=== PATIENT | female | born 1990 ===

== ENCOUNTER 2017-02-22 15:44 | Emergency (ER) | payer MEDICARE ==
[2017-02-22 15:55] VITALS: BMI 32.5
[2017-02-22 15:58] VITALS: TEMP 98.7; O2SAT 100
--- NOTE | 2017-02-22 16:19 | ED PDOC ---
Arrival/HPI - General Chief Complaint: Abdominal Pain Time Seen by Provider: 02/22/17 15:47 Historian: Patient - History of Present Illness Narrative History of Present Illness (Text): 02/22/17 16:14 26yo female present complaining of sharp suprapubic abdominal pain since this morning. states pain became increasingly worse as the day goes on. She notes clear vaginal discharge, but states is her usual discharge. She report that she is currently 10weeks . States her LMP was December 20/2017. Admits to nausea and vomiting, but states she has been having n/v since she became . She denies vaginal bleeding, fever, chills, diarrhea, constipation, dysuria, back pain, dizziness, any other complaint. Her first appointment with her OB is next week Saturday. Past Medical History - Provider Review Nursing Documentation Reviewed: Yes - Infectious Disease Hx of Infectious Diseases: None - Cardiac Hx Cardiac Disorders: No - Pulmonary Hx Respiratory Disorders: Yes Hx Asthma: Yes - Neurological Hx Neurological Disorder: No - HEENT Hx HEENT Disorder: No - Renal Hx Renal Disorder: No - Endocrine/Metabolic Hx Endocrine Disorders: No - Hematological/Oncological Hx Blood Disorders: No - Integumentary Hx Dermatological Disorder: No - Musculoskeletal/Rheumatological Hx Musculoskeletal Disorders: No - Gastrointestinal Hx Gastrointestinal Disorders: No - Genitourinary/Gynecological Hx Genitourinary Disorders: No - Psychiatric Hx Psychophysiologic Disorder: Yes Hx Depression: Yes Hx Substance Use: Yes - Anesthesia Hx Anesthesia: Yes Hx Anesthesia Reactions: No Hx Malignant Hyperthermia: No Family/Social History - Physician Review Nursing Documentation Reviewed: Yes Family/Social History: Unknown Family HX Smoking Status: Light Smoker < 10 Cigarettes Daily Hx Alcohol Use: No Hx Substance Use: Yes Substance used: Heroine; quit 4 years ago Allergies/Home Meds Allergies/Adverse Reactions: Allergies No Known Allergies Allergy (Verified 02/22/17 15:53) Home Medications: Home Meds Medication Instructions Recorded Confirmed No Known Home Med 02/22/17 02/22/17 Review of Systems - Physician Review All systems were reviewed & negative as marked: Yes - Review of Systems Constitutional: Normal Eyes: Normal ENT: Normal Respiratory: Normal Cardiovascular: Normal Gastrointestinal: Abdominal Pain, Nausea, Vomiting. absent: Constipation, Diarrhea, Hematochezia, Hematemesis Genitourinary Female: Normal Musculoskeletal: Normal Skin: Normal Neurological: Normal Endocrine: Normal Hemo/Lymphatic: Normal Psychiatric: Normal Physical Exam Vital Signs Reviewed: Yes Vital Signs Temp Pulse Resp BP Pulse Ox 02/22/17 18:42 87 17 110/70 100 02/22/17 16:27 89 18 103/68 100 02/22/17 15:57 98.7 F 96 H 17 101/72 100 Temperature: Afebrile Blood Pressure: Normal Pulse: Regular Respiratory Rate: Normal Appearance: Positive for: Well-Appearing, Non-Toxic, Comfortable Pain Distress: None Mental Status: Positive for: Alert and Oriented X 3 - Systems Exam Head: Present: Atraumatic, Normocephalic Pupils: Present: PERRL Extroacular Muscles: Present: EOMI Conjunctiva: Present: Normal Mouth: Present: Moist Mucous Membranes Neck: Present: Normal Range of Motion Respiratory/Chest: Present: Clear to Auscultation, Good Air Exchange. No: Respiratory Distress, Accessory Muscle Use Cardiovascular: Present: Regular Rate and Rhythm, Normal S1, S2. No: Murmurs Abdomen: Present: Tenderness (Suprapubic tenderness), Normal Bowel Sounds, Other (Soft). No: Distention, Peritoneal Signs, Rebound, Guarding, McBurney's Point Tender, Rovsing's Sign Present Back: Present: Normal Inspection. No: CVA Tenderness Upper Extremity: Present: Normal Inspection. No: Cyanosis, Edema Lower Extremity: Present: Normal Inspection. No: Edema Neurological: Present: GCS=15, CN II-XII Intact, Speech Normal Skin: Present: Warm, Dry, Normal Color. No: Rashes Psychiatric: Present: Alert, Oriented x 3, Normal Insight, Normal Concentration Medical Decision Making ED Course and Treatment: 02/23/17 00:40 PT presented for stated history. She was comfortable in ED. Hydrated and Tylenol given for pain. Lab was unremarkable. Transvaginal US Impression: Live single intrauterine with estimated gestational age 8 weeks 3 days. heart rate 164 bpm. Probable 1.1 x 2.0 cm subchorionic hemorrhage. Advise an anomaly screen at 16-18 weeks gestational age Pt denied vaginal bleeding in ED. Result was DW the pt. she was advised to f/u with her [employer]. TRT ED for any new or worsening symptoms - Lab Interpretations Lab Results: 02/22/17 16:00 02/22/17 16:00 Lab Results 02/22/17 16:00: Beta HCG, Quant [id number] H 02/22/17 16:00: Sodium 136, Potassium 3.5 L, Chloride 107, Carbon Dioxide 19 L, Anion Gap 14, BUN 10, Creatinine 0.5, Est GFR ( Amer) > 60, Est GFR (Non- Af Amer) > 60, Random Glucose 93, Calcium 8.9, Total Bilirubin 0.3, AST 17, ALT 19, Alkaline Phosphatase 36 L, Total Protein 6.6, Albumin 3.7, Globulin 2.9, Albumin/Globulin Ratio 1.3 02/22/17 16:00: Urine Color Yellow, Urine Appearance Cloudy, Urine pH 6.0, Ur Specific [place] >= 1.030, Urine Protein Negative, Urine Glucose (UA) Negative, Urine Ketones Trace H, Urine Blood Trace-lysed H, Urine Nitrate Negative, Urine Bilirubin Negative, Urine Urobilinogen 0.2, Ur Leukocyte Esterase Trace H, Urine RBC 0 - 2, Urine WBC 0 - 2, Ur Epithelial Cells Many, Calcium Oxalate Crystal Small, Urine Bacteria Mod, Urine HCG, Qual Positive 02/22/17 16:00: PT 10.1, INR 0.94, APTT 25.6 02/22/17 16:00: WBC 9.6 D, RBC 4.38, Hgb 13.1, Hct 36.8, MCV 84.0, MCH 29.9, MCHC 35.6, RDW 12.4, Plt Count 216, MPV 10.1, Gran % 65.7, Lymph % (Auto) 26.4, [place] % (Auto) 3.9, Eos % (Auto) 3.8, Baso % (Auto) 0.2, Gran # 6.28, Lymph # 2.5 , [place] # 0.4, Eos # 0.4, Baso # 0.02 - RAD Interpretation Radiology Orders: 02/22/17 16:09 OB TRANSVAGINAL [US] Stat - Medication Orders Current Medication Orders: Discontinued Medications Acetaminophen (Tylenol 325mg Tab) 650 mg PO STAT STA Stop: 02/22/17 16:24 Last Admin: 02/22/17 16:33 Dose: 650 mg Sodium Chloride (Sodium Chloride 0.9%) 1,000 mls @ 999 mls/hr IV .Q1H1M STA Stop: 02/22/17 17:22 Last Admin: 02/22/17 16:25 Dose: 999 mls/hr Disposition/Present on Arrival - Present on Arrival Any Indicators Present on Arrival: No History of DVT/PE: No History of Uncontrolled Diabetes: No Urinary Catheter: No History of Decub. Ulcer: No History Surgical Site Infection Following: None - Disposition Have Diagnosis and Disposition been Completed?: Yes Diagnosis: Abdominal pain, Disposition: HOME/ ROUTINE Disposition Time: 18:20 Isolation: Special Contact Patient Plan: Discharge Condition: STABLE Discharge Instructions (ExitCare): (ED), Abdominal Pain (ED) Additional Instructions: Follow up with your OB Return to ED for any new or worsening symptoms Referrals: Audra Edwards DO [Primary Care Provider] - Follow up with primary Lennox Caceres MD [Medical Doctor] - Follow up with primary
[2017-02-22] MEDS ORDERED: Sodium Chloride 0.9% 1,000 ML IV STA (16:22)
[2017-02-22 16:25] LABS: ADD MANUAL DIFF? NO
[2017-02-22 16:34] LABS: URINE BILIRUBIN NEGATIVE (NEGATIVE); URINE BLOOD TRACE-LYSED (NEGATIVE); URINE GLUCOSE (UA) NEGATIVE (NEGATIVE); URINE KETONE TRACE mg/dL (NEGATIVE); URINE LEUKOCYTE ESTERASE TRACE Leu/uL (NEGATIVE); URINE PROTEIN NEGATIVE mg/dL (<30 mg/dL); URINE UROBILINOGEN 0.2 E.U./dL (<1 E.U./dL)
[2017-02-22 16:40] LABS: ALB/GLOB RATIO 1.3 (1.1-1.8); ALKALINE PHOSPHATASE 36 U/L (38-133); ALT/SGPT 19 U/L (7-56); AST/SGOT 17 U/L (15-39); BASO # 0.02 K/mm3 (0.0-2.0); BASO % 0.2 % (0.0-3.0); BILIRUBIN,TOTAL 0.3 mg/dL (0.2-1.3); BLOOD UREA NITROGEN 10 mg/dL (7-21); CALCIUM 8.9 mg/dL (8.4-10.5); CARBON DIOXIDE 19 mmol/L (21-33); CHLORIDE 107 mmol/L (98-107); EOS # 0.4 (0.0-0.7); EOS % 3.8 % (1.5-5.0); GFR AFRICAN-AMERICAN > 60; GLUCOSE,RANDOM 93 mg/dL (70-110); GRAN # 6.28 (1.4-6.5); GRAN % 65.7 % (50.0-68.0); HEMATOCRIT 36.8 % (36.0-48.0); LYMPH # 2.5 (1.2-3.4); LYMPH % 26.4 % (22.0-35.0); MEAN CORPUSCULAR HEMOGLOBIN 29.9 pg (25.0-35.0); MEAN CORPUSCULAR HGB CONC 35.6 g/dl (31.0-37.0); MEAN PLATELET VOLUME 10.1 fl (7.0-11.0); MONO # 0.4 (0.1-0.6); MONO % 3.9 % (1.0-6.0); PLATELET COUNT 216 10^3/uL (120.0-450.0); RED CELL DISTRIBUTION WIDTH 12.4 % (11.5-14.5); SODIUM 136 mmol/L (132-148); TOTAL PROTEIN 6.6 g/dL (5.8-8.3); WHITE BLOOD COUNT 9.6 10^3/ul (4.5-11.0)
[2017-02-22 16:42] LABS: POTASSIUM 3.5 mmol/L (3.6-5.0); URINE APPEARANCE CLOUDY (CLEAR); URINE COLOR YELLOW (YELLOW)
[2017-02-22 17:01] LABS: INR 0.94 (0.93-1.08); PARTIAL THROMBOPLASTIN TIME 25.6 Seconds (23.7-30.8)
[2017-02-22 17:14] LABS: URINE BACTERIA MOD (NEG); URINE CALCIUM OXALATE CRYSTALS SMALL /hpf; URINE EPITHELIAL CELLS MANY /hpf (0-5); URINE RBC 0 - 2 /hpf (0-2); URINE WBC 0 - 2 /hpf (0-6)
--- NOTE | 2017-02-22 18:05 | US ---
Indication: /abdominal pain Comparison: None available Technique: Transvaginal pelvic ultrasound. Findings: The uterus measures approximately 10.4 x 5.9 x 9.0 cm. Anteverted. There is a single intrauterine fetus present. The gestational sac measures 3.2 cm and is compatible with a gestational age of 8 weeks 2 days. The crown-rump length measures 2.0 cm and is compatible with a gestational age of 8 weeks 4 days. Probable 1.1 x 2.0 cm subchorionic hemorrhage. There is heart motion which measured 164 BPM. The right ovary measures 3.4 x 2.1 x 3.4 cm and contains 2.7 cm cyst. The left ovary measures 3.7 x 2.3 x 3.1 cm and contains 1.1 cm cyst. Blood flow was demonstrated to both ovaries. Impression: Live single intrauterine with estimated gestational age 8 weeks 3 days. heart rate 164 bpm. Probable 1.1 x 2.0 cm subchorionic hemorrhage. Advise an anomaly screen at 16-18 weeks gestational age
[2017-02-22 18:43] VITALS: BP 110/70; PULSE 87; RESP 17
== END 2017-02-22 18:43 | disposition home or self-care (01) ==
LOC: ED 15:44
DX: O26.891 Other specified pregnancy related conditions, first trimester (principal); R10.9 Unspecified abdominal pain; Z3A.10 10 weeks gestation of pregnancy
CPT/HCPCS: 76817; 80053; 81001; 84702; 84703; 85025; 85610; 85730; 96360; 99285; J7040

== ENCOUNTER 2017-03-17 06:45 | Emergency (ER) | payer MEDICAID, MEDICARE ==
[2017-03-17] MEDS ORDERED: Sodium Chloride 0.9% 1,000 ML IV STA (07:42)
[2017-03-17 07:47] VITALS: TEMP 99.1; BMI 34.3
[2017-03-17 08:28] LABS: BASO # 0.03 K/mm3 (0.0-2.0); BASO % 0.4 % (0.0-3.0); EOS # 0.6 (0.0-0.7); EOS % 8.4 % (1.5-5.0); GRAN # 4.38 (1.4-6.5); GRAN % 61.2 % (50.0-68.0); HEMOGLOBIN 10.2 gm/dL (12.0-16.0); LYMPH # 1.9 (1.2-3.4); LYMPH % 25.8 % (22.0-35.0); MEAN CELL VOLUME 84.6 fL (80.0-105.0); MEAN CORPUSCULAR HEMOGLOBIN 29.7 pg (25.0-35.0); MEAN CORPUSCULAR HGB CONC 35.1 g/dl (31.0-37.0); MEAN PLATELET VOLUME 10.6 fl (7.0-11.0); MONO # 0.3 (0.1-0.6); MONO % 4.2 % (1.0-6.0); PLATELET COUNT 226 10^3/uL (120.0-450.0); RBC 3.44 10^6/uL (3.5-6.1); WHITE BLOOD COUNT 7.2 10^3/ul (4.5-11.0)
[2017-03-17 08:37] LABS: INR 0.95 (0.93-1.08); PARTIAL THROMBOPLASTIN TIME 24.7 Seconds (23.7-30.8); PROTHROMBIN TIME 10.3 Seconds (9.9-11.8)
[2017-03-17 11:11] LABS: ALB/GLOB RATIO 1.1 (1.1-1.8); ALBUMIN 3.1 g/dL (3.0-4.8); ALT/SGPT 20 U/L (7-56); AST/SGOT 17 U/L (15-39); BLOOD UREA NITROGEN 7 mg/dL (7-21); CALCIUM 8.5 mg/dL (8.4-10.5); GFR AFRICAN-AMERICAN > 60; GFR NON-AFRICAN AMERICAN > 60; LIPASE 23 U/L (23-300)
[2017-03-17 11:44] VITALS: RESP 18
[2017-03-17 11:45] VITALS: BP 113/59; PULSE 82; O2SAT 98
--- NOTE | 2017-03-17 12:05 | US ---
Pelvic ultrasound dated 03/17/2017. History: Status post 2 days ago with vaginal bleeding. Transabdominal/transvaginal sonographic evaluation of pelvis performed. The no prior study available for comparison. Findings: The uterus is mildly enlarged measuring 11.2 x 6.5 x 8.7 cm. No evidence of intrauterine gestation. Clear endometrial stripe is not identified however what probably represents heterogeneous prominent endometrium and debris possibly admixed with hemorrhagic components. None evidence of significant increased vascularity to suggest retained products however the possibility of developing retained products must be excluded with followup serial ultrasound. Possibility of an ectopic must also be excluded with followup serial serum beta HCG and serial ultrasound as well. Cervix is closed measuring approximately 3.8 cm. Right ovary measures 2.4 x 1.5 x 1.0 cm and exhibits arterial flow. Left ovary measures 1.7 x 1.5 x 1.5 cm. . The left ovary exhibits arterial flow. Impression: No evidence of intrauterine gestation. The possibility of an ectopic must be excluded with followup serial serum beta HCG and serial ultrasound. The there is markedly heterogeneous appearance of the endometrium which could be due to some combination of prominent endometrium as well as some hemorrhagic debris/clot. No evidence of increased vascularity to suggest retained products however developing retained products cannot be excluded. Follow-up ultrasound recommended to assess for yazdanism of normal endometrial thickness These findings were discussed with the Dr. Linn ibanez at approximately 11:15 a.m. with written down and read back verification.
--- NOTE | 2017-03-17 12:17 | ED PDOC ---
Arrival/HPI - General Chief Complaint: Female Genitourinary Time Seen by Provider: 03/17/17 07:34 Historian: Patient - History of Present Illness Narrative History of Present Illness (Text): 03/17/17 8:30 A 26 year old female presents to the emergency department complaining of vaginal bleeding for the past two days. Patient states she had an two days ago at the [facility] and notes vaginal bleeding since the procedure, slowly increased this morning. Reports nausea and vomiting but denies any dysuria, hematuria, foul smelling vaginal discharge, fever or any other complaints at this time. Time/Duration: Other (2 days) Symptom Onset: Sudden Symptom Course: Unchanged Activities at Onset: Rest Context: Home Past Medical History - Provider Review Nursing Documentation Reviewed: Yes - Infectious Disease Hx of Infectious Diseases: None - Cardiac Hx Cardiac Disorders: No - Pulmonary Hx Respiratory Disorders: Yes Hx Asthma: Yes - Neurological Hx Neurological Disorder: No - HEENT Hx HEENT Disorder: No - Renal Hx Renal Disorder: No - Endocrine/Metabolic Hx Endocrine Disorders: No - Hematological/Oncological Hx Blood Disorders: No - Integumentary Hx Dermatological Disorder: No - Musculoskeletal/Rheumatological Hx Musculoskeletal Disorders: No - Gastrointestinal Hx Gastrointestinal Disorders: No - Genitourinary/Gynecological Hx Genitourinary Disorders: No - Psychiatric Hx Psychophysiologic Disorder: Yes Hx Depression: Yes Hx Substance Use: Yes - Anesthesia Hx Anesthesia: Yes Hx Anesthesia Reactions: No Hx Malignant Hyperthermia: No Family/Social History - Physician Review Nursing Documentation Reviewed: Yes Family/Social History: No Known Family HX Smoking Status: Light Smoker < 10 Cigarettes Daily Hx Alcohol Use: No Hx Substance Use: Yes Substance used: Heroine; quit 4 years ago Allergies/Home Meds Allergies/Adverse Reactions: Allergies No Known Allergies Allergy (Verified 03/17/17 07:31) Home Medications: Home Meds Medication Instructions Recorded Confirmed No Known Home Med 02/22/17 03/17/17 Review of Systems - Physician Review All systems were reviewed & negative as marked: Yes - Review of Systems Constitutional: absent: Fevers Gastrointestinal: Nausea, Vomiting Genitourinary Female: Vaginal Bleeding. absent: Dysuria, Hematuria, Other ( foul smelling vaginal discharge) Physical Exam Vital Signs Reviewed: Yes Vital Signs Temp Pulse Resp BP Pulse Ox 03/17/17 11:44 82 18 113/59 L 98 03/17/17 09:00 72 18 120/77 99 03/17/17 07:27 99.1 F 87 16 104/66 99 Temperature: Afebrile Blood Pressure: Normal Pulse: Regular Respiratory Rate: Normal Appearance: Positive for: Well-Appearing, Non-Toxic, Comfortable Pain Distress: None Mental Status: Positive for: Alert and Oriented X 3 - Systems Exam Head: Present: Atraumatic, Normocephalic Pupils: Present: PERRL Extroacular Muscles: Present: EOMI Conjunctiva: Present: Normal Mouth: Present: Moist Mucous Membranes Neck: Present: Normal Range of Motion Respiratory/Chest: Present: Clear to Auscultation, Good Air Exchange. No: Respiratory Distress, Accessory Muscle Use Cardiovascular: Present: Regular Rate and Rhythm, Normal S1, S2. No: Murmurs Abdomen: Present: Normal Bowel Sounds. No: Tenderness, Distention, Peritoneal Signs Back: Present: Normal Inspection Upper Extremity: Present: Normal Inspection. No: Cyanosis, Edema Lower Extremity: Present: Normal Inspection. No: Edema Neurological: Present: GCS=15, CN II-XII Intact, Speech Normal Skin: Present: Warm, Dry, Normal Color. No: Rashes Psychiatric: Present: Alert, Oriented x 3, Normal Insight, Normal Concentration Medical Decision Making ED Course and Treatment: 03/17/17 8:30 Impression: A 26 year old female with vaginal bleeding. Plan: -- US transvaginal -- labs -- IV fluids, Toradol -- Reassess and disposition Prior Visits: Notes and results from previous visits were reviewed. Patient last reported to the emergency department on 02/22/17 for evaluation of suprapubic abdominal pain. Progress Notes: 03/17/17 11:20 Spoke to patient and advised her to follow up with OBGYN that did her procedure tomorrow morning at [facility]. 03/17/17 11:56 Transvaginal US Creator : Sammy Moseley MD Impression: No evidence of intrauterine gestation. The possibility of an ectopic must be excluded with followup serial serum beta HCG and serial ultrasound. The there is markedly heterogeneous appearance of the endometrium which could be due to some combination of prominent endometrium as well as some hemorrhagic debris/clot. No evidence of increased vascularity to suggest retained products however developing retained products cannot be excluded. Follow-up ultrasound recommended to assess for latter day of normal endometrial thickness These findings were discussed with the Dr. Osullivan at approximately 11:15 a.m. with written down and read back verification. - Lab Interpretations Lab Results: 03/17/17 08:10 03/17/17 10:35 Lab Results 03/17/17 10:35: Sodium 140, Potassium 4.0, Chloride 108 H, Carbon Dioxide 24, Anion Gap 12, BUN 7, Creatinine 0.5, Est GFR ( Amer) > 60, Est GFR (Non- Af Amer) > 60, Random Glucose 77, Calcium 8.5, Total Bilirubin 0.2, AST 17, ALT 20, Alkaline Phosphatase 30 L, Total Protein 6.0, Albumin 3.1, Globulin 2.9, Albumin/Globulin Ratio 1.1, Lipase 23 03/17/17 08:10: PT 10.3, INR 0.95, APTT 24.7 03/17/17 08:10: WBC 7.2 D, RBC 3.44 L, Hgb 10.2 L, Hct 29.1 L, MCV 84.6, MCH 29.7, MCHC 35.1, RDW 13.0, Plt Count 226, MPV 10.6, Gran % 61.2, Lymph % (Auto) 25.8, [place] % (Auto) 4.2, Eos % (Auto) 8.4 H, Baso % (Auto) 0.4, Gran # 4.38, Lymph # 1.9, [place] # 0.3, Eos # 0.6, Baso # 0.03 I have reviewed the lab results: Yes - RAD Interpretation Radiology Orders: 03/17/17 08:25 TRANSVAGINAL [US] Stat - Medication Orders Current Medication Orders: Discontinued Medications Sodium Chloride (Sodium Chloride 0.9%) 1,000 mls @ 1,000 mls/hr IV .Q1H STA Stop: 03/17/17 08:41 Last Admin: 03/17/17 08:16 Dose: 1,000 mls/hr Ketorolac Tromethamine (Toradol) 30 mg IVP STAT STA Stop: 03/17/17 08:27 Last Admin: 03/17/17 11:39 Dose: 30 mg Comments: patient refusing at first - Scribe Statement The provider has reviewed the documentation as recorded by the Marielena Brasher Provider Scribe Attestation: All medical record entries made by the Scribe were at my direction and personally dictated by me. I have reviewed the chart and agree that the record accurately reflects my personal performance of the history, physical exam, medical decision making, and the department course for this patient. I have also personally directed, reviewed, and agree with the discharge instructions and disposition. Disposition/Present on Arrival - Present on Arrival Any Indicators Present on Arrival: No History of DVT/PE: No History of Uncontrolled Diabetes: No Urinary Catheter: No History of Decub. Ulcer: No History Surgical Site Infection Following: None - Disposition Have Diagnosis and Disposition been Completed?: Yes Diagnosis: Vaginal bleeding Disposition: HOME/ ROUTINE Disposition Time: 11:30 Condition: GOOD Additional Instructions: Thank you for letting us take care of you today. You were treated for vaginal bleeding after an elective . The emergency medical care you received today was directed at your acute symptoms. If you were prescribed any medication , please fill it and take as directed. It may take several days for your symptoms to resolve. Return to the Emergency Department if your symptoms worsen , do not improve, or if you have any other problems. Please contact your doctor or call one of the physicians/clinics you have been referred to that are listed on the Patient Visit Information form that is included in your discharge packet. Bring any paperwork you were given at discharge with you along with any medications you are taking to your follow up visit. Our treatment cannot replace ongoing medical care by a primary care provider (PCP) outside of the emergency department. Thank you for allowing the [facility] team to be part of your care today. FOLLOW UP WITH YOUR [facility] AT [facility] TOMORROW MORNING FOR POSSIBLE REPEAT BLOOD WORK AND ULTRASOUND. If you develop a fever or have any other concerns, return to the emergency room. Referrals: Audra Edwards DO [Primary Care Provider] - Follow up with primary Forms: WORK NOTE
== END 2017-03-17 12:00 | disposition home or self-care (01) ==
LOC: ED 06:45
DX: N93.9 Abnormal uterine and vaginal bleeding, unspecified (principal)
CPT/HCPCS: 76830; 80053; 83690; 85025; 85610; 85730; 96361; 96374; 99284; J1885; J7040

== ENCOUNTER 2017-03-22 16:29 | Emergency (ER) | payer MEDICARE, MEDICAID ==
[2017-03-22 16:36] VITALS: BMI 33.0
[2017-03-22 16:38] VITALS: TEMP 99; O2SAT 100
--- NOTE | 2017-03-22 16:58 | ED PDOC ---
Arrival/HPI - General Chief Complaint: Finger,Hand,&Wrist Time Seen by Provider: 03/22/17 16:33 - History of Present Illness Narrative History of Present Illness (Text): 26 F with no PMH presents to ED with complaint of L fifth digit laceration. Patient was cuttting raw chicken at home around 4 pm when she accidentally cut her finger. Patient stated that it happen suddenly. She washed it off and used bandage to stop bleeding before coming straight to ED. Patient rates pain 3-4/ 10. Describes it as a constant and burning pain. Tetanus status unknown. Time/Duration: Prior to Arrival Symptom Onset: Sudden Symptom Course: Unchanged Severity Level: 4 Activities at Onset: Other (cooking) Context: Home Past Medical History - Provider Review Nursing Documentation Reviewed: Yes - Travel History Have you recently traveled outside [place] w/in the past 3 mons?: No - Infectious Disease Hx of Infectious Diseases: None - Cardiac Hx Cardiac Disorders: No - Pulmonary Hx Respiratory Disorders: Yes Hx Asthma: Yes - Neurological Hx Neurological Disorder: No - HEENT Hx HEENT Disorder: No - Renal Hx Renal Disorder: No - Endocrine/Metabolic Hx Endocrine Disorders: No - Hematological/Oncological Hx Blood Disorders: No - Integumentary Hx Dermatological Disorder: No - Musculoskeletal/Rheumatological Hx Musculoskeletal Disorders: No - Gastrointestinal Hx Gastrointestinal Disorders: No - Genitourinary/Gynecological Hx Genitourinary Disorders: No - Psychiatric Hx Psychophysiologic Disorder: Yes Hx Depression: Yes Hx Substance Use: Yes - Anesthesia Hx Anesthesia: Yes Hx Anesthesia Reactions: No Hx Malignant Hyperthermia: No Family/Social History - Physician Review Nursing Documentation Reviewed: Yes Family/Social History: Unknown Family HX Smoking Status: Light Smoker < 10 Cigarettes Daily Hx Alcohol Use: No Hx Substance Use: Yes Substance used: Heroine; quit 4 years ago Allergies/Home Meds Allergies/Adverse Reactions: Allergies No Known Allergies Allergy (Verified 03/22/17 16:36) Physical Exam Vital Signs Reviewed: Yes Vital Signs Temp Pulse Resp BP Pulse Ox 03/22/17 16:37 99.0 F 88 17 114/66 100 Temperature: Afebrile Blood Pressure: Normal Pulse: Regular Respiratory Rate: Normal Appearance: Positive for: Well-Appearing, Non-Toxic, Uncomfortable Pain Distress: Mild Mental Status: Positive for: Alert and Oriented X 3 - Systems Exam Head: Present: Atraumatic, Normocephalic Mouth: Present: Moist Mucous Membranes Respiratory/Chest: Present: Clear to Auscultation, Good Air Exchange Cardiovascular: Present: Regular Rate and Rhythm, Normal S1, S2, Peripheal Pulses Present Abdomen: Present: Normal Bowel Sounds. No: Tenderness, Distention, Rebound, Guarding Upper Extremity: Present: NORMAL PULSES, Neurovascularly Intact, Capillary Refill < 2s Lower Extremity: Present: NORMAL PULSES, Neurovascularly Intact, Capillary Refill < 2 s Neurological: Present: GCS=15, CN II-XII Intact, Speech Normal, Motor Func Grossly Intact Skin: Present: Warm, Dry, Laceration Lymphatic: No: Cervical Adenopathy, Axillary Adenopathy, Inguinal Adenopathy Psychiatric: Present: Alert (L fifth digit), Oriented x 3, Normal Insight, Normal Concentration Medical Decision Making ED Course and Treatment: Patient given TDAP since tetanus status unknown. Dermabond was used to close wound since it was an avulsion wound. Bactrim DS rx given for 7 days. - Medication Orders Current Medication Orders: Discontinued Medications Tetanus/Reduced Diphtheria/Acell Pertussis (Boostrix Vaccine Inj) 0.5 ml IM .ONCE ONE Stop: 03/22/17 17:12 Disposition/Present on Arrival - Present on Arrival Any Indicators Present on Arrival: No History of DVT/PE: No History of Uncontrolled Diabetes: No Urinary Catheter: No History of Decub. Ulcer: No History Surgical Site Infection Following: None - Disposition Have Diagnosis and Disposition been Completed?: Yes Diagnosis: Laceration of finger Disposition: HOME/ ROUTINE Disposition Time: 17:12 Patient Plan: Discharge Patient Problems: Current Active Problems Problem Status Onset Laceration of finger Acute Condition: STABLE Discharge Instructions (ExitCare): Laceration (ED) Additional Instructions: Thank you for letting us take care of you today. Your provider was Dr. Carranza. You were treated for laceration of finger. The emergency medical care you received today was directed at your acute symptoms. If you were prescribed any medication, please fill it and take as directed. It may take several days for your symptoms to resolve. Return to the Emergency Department if your symptoms worsen, do not improve, or if you have any other problems. Please contact your doctor or call one of the physicians/clinics you have been referred to that are listed on the Patient Visit Information form that is included in your discharge packet. Bring any paperwork you were given at discharge with you along with any medications you are taking to your follow up visit. Our treatment cannot replace ongoing medical care by a primary care provider (PCP) outside of the emergency department. Thank you for allowing the [email or web address] team to be part of your care today. If you had an X-Ray or CT scan: A Radiologist will review the ED reading if any change in treatment is needed we will contact you. If you had a blood, urine, or wound culture: It will take several days for the results, if any change in treatment is needed we will contact you. If you had an STI test: It will take 48 hours for the results. Please call after 1 week if you have not heard back. Take Bactrim DS as prescribed Follow up with PMD within 2-3 days Please return to ED if symptoms persist or condition worsens Prescriptions: Sulfamethoxazole/Trimethoprim [Bactrim DS 800 mg-160 mg] 1 tab PO BID #14 tab
[2017-03-22] MEDS ORDERED: TDAP Vaccine 0.5 mL Syr IM ONE (17:11)
[2017-03-22 18:07] VITALS: BP 116/68; PULSE 79; RESP 18
== END 2017-03-22 18:08 | disposition home or self-care (01) ==
LOC: ED 16:29
DX: S61.217A Laceration without foreign body of left little finger without damage to nail, initial encounter (principal); W45.8XXA Other foreign body or object entering through skin, initial encounter; Y92.009 Unspecified place in unspecified non-institutional (private) residence as the place of occurrence of the external cause; Z23 Encounter for immunization

== ENCOUNTER 2017-07-27 12:15 | Emergency (ER) | payer MEDICARE, MEDICAID ==
[2017-07-27 12:20] VITALS: BMI 32.4
[2017-07-27 12:32] VITALS: BP 134/67; PULSE 64; RESP 18; TEMP 98.6; O2SAT 98
--- NOTE | 2017-07-27 12:46 | ED PDOC ---
Arrival/HPI - General Chief Complaint: Chest Pain Time Seen by Provider: 07/27/17 12:27 Historian: Patient - History of Present Illness Narrative History of Present Illness (Text): 07/27/17 12:46 This 26 yo female with pmh asthma, and depression, presents to this ED c/o CP, b /l hands feel tingling, polydipsia x 2-3 days. Patient stated pain has been constant, and it worsen with movement. Pain is described as pressure and sharp. Denies sob, cortés, hemeoptysis, recent travel, leg swelling, BCP use, calf pain, recent travel, recent surgery, cortés, dizziness, or abnormal gait. PERC negative for PE Time/Duration: Other (see hpi) Quality: Pressure, Other (sharp) Context: Home Past Medical History - Provider Review Nursing Documentation Reviewed: Yes - Infectious Disease Hx of Infectious Diseases: None - Cardiac Hx Cardiac Disorders: No - Pulmonary Hx Respiratory Disorders: Yes Hx Asthma: Yes - Neurological Hx Neurological Disorder: No - HEENT Hx HEENT Disorder: No - Renal Hx Renal Disorder: No - Endocrine/Metabolic Hx Endocrine Disorders: No - Hematological/Oncological Hx Blood Disorders: No - Integumentary Hx Dermatological Disorder: No - Musculoskeletal/Rheumatological Hx Musculoskeletal Disorders: No - Gastrointestinal Hx Gastrointestinal Disorders: No - Genitourinary/Gynecological Hx Genitourinary Disorders: No - Psychiatric Hx Psychophysiologic Disorder: Yes Hx Depression: Yes Hx Substance Use: No - Anesthesia Hx Anesthesia: Yes Hx Anesthesia Reactions: No Hx Malignant Hyperthermia: No Family/Social History - Physician Review Nursing Documentation Reviewed: Yes Family/Social History: Other (noncontributory) Smoking Status: Light Smoker < 10 Cigarettes Daily Hx Alcohol Use: Yes Frequency of alcohol use: Socially Hx Substance Use: No Substance used: Heroine; quit 4 years ago Allergies/Home Meds Allergies/Adverse Reactions: Allergies No Known Allergies Allergy (Verified 07/07/17 12:40) Review of Systems - Review of Systems Constitutional: Normal. absent: Fatigue, Weight Change, Fevers Eyes: Normal ENT: Normal Respiratory: Normal. absent: SOB, Cough, Sputum Cardiovascular: Chest Pain, Other (b/l hand tingling) Gastrointestinal: Normal. absent: Abdominal Pain, Nausea, Vomiting Genitourinary Female: Normal Musculoskeletal: Normal Skin: Normal Neurological: Normal Endocrine: Normal Hemo/Lymphatic: Normal Psychiatric: Normal Physical Exam Vital Signs Temp Pulse Resp BP Pulse Ox 07/27/17 12:16 98.6 F 64 18 134/67 98 Temperature: Afebrile Blood Pressure: Normal Pulse: Regular Respiratory Rate: Normal Appearance: Positive for: Well-Appearing, Non-Toxic, Comfortable Pain Distress: None Mental Status: Positive for: Alert and Oriented X 3 - Systems Exam Head: Present: Atraumatic, Normocephalic Pupils: Present: PERRL Extroacular Muscles: Present: EOMI Conjunctiva: Present: Normal Mouth: Present: Moist Mucous Membranes Neck: Present: Normal Range of Motion Respiratory/Chest: Present: Clear to Auscultation, Good Air Exchange. No: Respiratory Distress, Accessory Muscle Use Cardiovascular: Present: Regular Rate and Rhythm, Normal S1, S2. No: Murmurs Abdomen: Present: Normal Bowel Sounds. No: Tenderness, Distention, Peritoneal Signs Back: Present: Normal Inspection Upper Extremity: Present: Normal Inspection. No: Cyanosis, Edema Lower Extremity: Present: Normal Inspection. No: Edema Neurological: Present: GCS=15, CN II-XII Intact, Speech Normal Skin: Present: Warm, Dry, Normal Color. No: Rashes Psychiatric: Present: Alert, Oriented x 3, Normal Insight, Normal Concentration , Anxious. No: Depressed Mood, Suicidal Ideation, Homicidal Ideation Medical Decision Making ED Course and Treatment: 07/27/17 13:39 Patient came c/o chest pain, tingling of finger b/l, and polydipsia. Physical exam was unremarkable. Patient denies cardiac risk factors. PERC negative for PE. Labs , cxr, ekg were negative. Patient was treated with Toradol IVP, and Xanax 0.25 mg po. Patient symptoms improved and patient was recommended to [facility]. Return to emergency if symptoms worsen. Patient was tearful during medical interview. Patient admits not taking medication, or attending psych therapy. She understood plan to [facility]. Patient denies SI, or HI Re-evaluation Time: 13:44 Reassessment Condition: Re-examined, Improved - Lab Interpretations Lab Results: 07/27/17 12:55 07/27/17 12:55 Lab Results 07/27/17 13:00: Urine Color Yellow, Urine Appearance Clear, Urine pH 6.5, Ur Specific [place] 1.025, Urine Protein Trace H, Urine Glucose (UA) Negative, Urine Ketones Negative, Urine Blood Negative, Urine Nitrate Negative, Urine Bilirubin Negative, Urine Urobilinogen 1.0 H, Ur Leukocyte Esterase Negative, Urine RBC 0 - 2, Urine WBC 0 - 2, Ur Epithelial Cells Many, Urine Bacteria Small , Urine HCG, Qual Negative 07/27/17 12:55: Sodium 141, Potassium 4.3, Chloride 110 H, Carbon Dioxide 23, Anion Gap 12, BUN 10, Creatinine 0.7, Est GFR ( Amer) > 60, Est GFR (Non- Af Amer) > 60, Random Glucose 86, Calcium 8.9, Total Bilirubin 0.7, AST 20, ALT 32, Alkaline Phosphatase 37 L, Total Protein 6.9, Albumin 4.1, Globulin 2.8, Albumin/Globulin Ratio 1.5 07/27/17 12:55: WBC 5.9, RBC 4.39, Hgb 12.6, Hct 37.1, MCV 84.5, MCH 28.7, MCHC 34.0, RDW 13.4, Plt Count 210, MPV 10.3, Gran % 33.7 L, Lymph % (Auto) 44.5 H, [place] % (Auto) 5.1, Eos % (Auto) 16.0 H, Baso % (Auto) 0.7, Gran # 1.98, Lymph # 2.6, [place] # 0.3, Eos # 0.9 H, Baso # 0.04 I have reviewed the lab results: Yes Interpretation: No clinic. lab abnormalty - RAD Interpretation Narrative RAD Interpretations (Text): 07/27/17 13:30 HISTORY: CP COMPARISON: 09/05/2016 TECHNIQUE: Chest PA and lateral FINDINGS: LUNGS: No active pulmonary disease. PLEURA: No significant pleural effusion identified. No pneumothorax apparent. CARDIOVASCULAR: Normal. OSSEOUS STRUCTURES: No significant abnormalities. VISUALIZED UPPER ABDOMEN: Normal. OTHER FINDINGS: None. IMPRESSION: No active disease. Radiology Orders: 07/27/17 12:47 CHEST TWO VIEWS (PA/LAT) [RAD] Stat - EKG Interpretation Interpreted by ED Physician: Yes (NSR @ [address] changes) Type: 12 lead EKG Comparison: No previous EKG avail. - Medication Orders Current Medication Orders: Discontinued Medications Alprazolam (Xanax) 0.25 mg PO STAT STA PRN Reason: Protocol Stop: 07/27/17 13:34 Last Admin: 07/27/17 13:47 Dose: 0.25 mg Ketorolac Tromethamine (Toradol) 15 mg IVP STAT STA Stop: 07/27/17 13:32 Last Admin: 07/27/17 13:47 Dose: 15 mg MAR Pain Assessment Document 07/27/17 13:47 SRE (Rec: 07/27/17 13:47 SRE [id number]) Pain Reassessment Is this a pain reassessment? Yes Sleep Is patient sleeping during reassessment? No Presence of Pain Presence of Pain Yes Pain Scale Used Pain Scale Used Numeric Location Pain Location Body Site Chest Description Description Intermittent IVP Administration Document 07/27/17 13:47 SRE (Rec: 07/27/17 13:47 SRE [id number]) Charges for Administration # of IVP Administrations 1 Disposition/Present on Arrival - Present on Arrival Any Indicators Present on Arrival: No History of DVT/PE: No History of Uncontrolled Diabetes: No Urinary Catheter: No History of Decub. Ulcer: No History Surgical Site Infection Following: None - Disposition Have Diagnosis and Disposition been Completed?: Yes Diagnosis: Non-cardiac chest pain, Anxiety Disposition: HOME/ ROUTINE Disposition Time: 13:46 Patient Plan: Discharge Condition: IMPROVED Discharge Instructions (ExitCare): Panic Disorder (ED), Noncardiac Chest Pain ( ED) Additional Instructions: Call private doctor for follow up visit. Also call [facility] Clinic. Return to emergency if symptoms worsen. Prescriptions: Famotidine [Pepcid] 40 mg PO DAILY #10 tablet Naproxen 500 mg PO BID PRN #14 tab PRN Reason: Pain, Severe (8-10) Referrals: Sly Dodd MD [Primary Care Provider] - Follow up with primary [facility] [Outside] - [facility] with [facility]] - Follow up with primary Forms: [employer] (Beninese)
[2017-07-27 13:11] LABS: BASO # 0.04 K/mm3 (0.0-2.0); BASO % 0.7 % (0.0-3.0); EOS # 0.9 (0.0-0.7); GRAN # 1.98 (1.4-6.5); GRAN % 33.7 % (50.0-68.0); HEMATOCRIT 37.1 % (36.0-48.0); LYMPH # 2.6 (1.2-3.4); LYMPH % 44.5 % (22.0-35.0); MEAN CELL VOLUME 84.5 fl (80.0-105.0); MEAN CORPUSCULAR HEMOGLOBIN 28.7 pg (25.0-35.0); MEAN PLATELET VOLUME 10.3 fl (7.0-11.0); MONO # 0.3 (0.1-0.6); MONO % 5.1 % (1.0-6.0); RED CELL DISTRIBUTION WIDTH 13.4 % (11.5-14.5); WHITE BLOOD COUNT 5.9 10^3/ul (4.5-11.0)
[2017-07-27 13:12] LABS: PH,URINE 6.5 (4.7-8.0); URINE APPEARANCE CLEAR (CLEAR); URINE BILIRUBIN NEGATIVE (NEGATIVE); URINE BLOOD NEGATIVE (NEGATIVE); URINE COLOR YELLOW (YELLOW); URINE GLUCOSE (UA) NEGATIVE (NEGATIVE); URINE KETONE NEGATIVE (NEGATIVE); URINE LEUKOCYTE ESTERASE NEGATIVE Leu/uL (NEGATIVE); URINE PROTEIN TRACE mg/dL (<30 mg/dL)
[2017-07-27 13:20] LABS: URINE RBC 0 - 2 /hpf (0-2); URINE WBC 0 - 2 /hpf (0-6)
[2017-07-27 13:21] LABS: ALB/GLOB RATIO 1.5 (1.1-1.8); ALKALINE PHOSPHATASE 37 U/L (38-126); ALT/SGPT 32 U/L (7-56); AST/SGOT 20 U/L (14-36); BILIRUBIN,TOTAL 0.7 mg/dL (0.2-1.3); BLOOD UREA NITROGEN 10 mg/dL (7-21); CALCIUM 8.9 mg/dL (8.4-10.5); CARBON DIOXIDE 23 mmol/L (21-33); CHLORIDE 110 mmol/L (98-107); GFR AFRICAN-AMERICAN > 60; GLUCOSE,RANDOM 86 mg/dL (70-110); POTASSIUM 4.3 mmol/L (3.6-5.0); SODIUM 141 mmol/L (132-148); TOTAL PROTEIN 6.9 g/dL (5.8-8.3)
[2017-07-27 13:21] LABS: URINE BACTERIA SMALL (NEG); URINE EPITHELIAL CELLS MANY /hpf (0-5)
--- NOTE | 2017-07-27 13:27 | RAD ---
HISTORY: CP COMPARISON: 09/05/2016 TECHNIQUE: Chest PA and lateral FINDINGS: LUNGS: No active pulmonary disease. PLEURA: No significant pleural effusion identified. No pneumothorax apparent. CARDIOVASCULAR: Normal. OSSEOUS STRUCTURES: No significant abnormalities. VISUALIZED UPPER ABDOMEN: Normal. OTHER FINDINGS: None. IMPRESSION: No active disease.
--- NOTE | 2017-07-28 08:55 | CARD ---
APPROVED REPORT EKG Measurement Heart [id number] CT 120P29 [id number] <Conclusion> Normal sinus rhythm Normal ECG No change
== END 2017-07-27 13:59 | disposition home or self-care (01) ==
LOC: ED 12:15
DX: F41.9 Anxiety disorder, unspecified (principal); R07.89 Other chest pain; F17.210 Nicotine dependence, cigarettes, uncomplicated
CPT/HCPCS: 71020; 80053; 81001; 84703; 85025; 93005; 96374; 99284; J1885

== ENCOUNTER 2017-09-14 12:53 | Emergency (ER) | payer MEDICAID, MEDICARE ==
[2017-09-14 12:54] VITALS: BMI 32.4
[2017-09-14 12:59] VITALS: BP 116/79; PULSE 86; RESP 16; TEMP 97.8; O2SAT 100
--- NOTE | 2017-09-14 13:45 | ED PDOC ---
Arrival/HPI - General Chief Complaint: Back Pain Time Seen by Provider: 09/14/17 13:04 Historian: Patient - History of Present Illness Narrative History of Present Illness (Text): 09/14/17 13:13 A 26 year old female, whose past medical history includes asthma and depression , presents to the emergency department complaining of mid-lower back pain. Patient reports severity ranging 8/10. Patient took Advil and use Hot/Cold pack but has had no relief from symptom. Also, patient mentions occassional pins and needles sensation associated with back pain. PM:D Dr. Sly Dodd Past Medical History - Provider Review Nursing Documentation Reviewed: Yes - Infectious Disease Hx of Infectious Diseases: None - Cardiac Hx Cardiac Disorders: No - Pulmonary Hx Respiratory Disorders: Yes Hx Asthma: Yes - Neurological Hx Neurological Disorder: No - HEENT Hx HEENT Disorder: No - Renal Hx Renal Disorder: No - Endocrine/Metabolic Hx Endocrine Disorders: No - Hematological/Oncological Hx Blood Disorders: No - Integumentary Hx Dermatological Disorder: No - Musculoskeletal/Rheumatological Hx Musculoskeletal Disorders: No - Gastrointestinal Hx Gastrointestinal Disorders: No - Genitourinary/Gynecological Hx Genitourinary Disorders: No - Psychiatric Hx Psychophysiologic Disorder: Yes Hx Depression: Yes Hx Substance Use: No - Anesthesia Hx Anesthesia: Yes Hx Anesthesia Reactions: No Hx Malignant Hyperthermia: No Family/Social History - Physician Review Nursing Documentation Reviewed: Yes Family/Social History: No Known Family HX Smoking Status: Light Smoker < 10 Cigarettes Daily Hx Alcohol Use: No Hx Substance Use: No Substance used: Heroine; quit 4 years ago Allergies/Home Meds Allergies/Adverse Reactions: Allergies No Known Allergies Allergy (Verified 09/14/17 12:56) Review of Systems - Review of Systems Constitutional: Normal Eyes: Normal ENT: Normal Respiratory: Normal Cardiovascular: Normal Gastrointestinal: Normal Genitourinary Female: Normal Musculoskeletal: Back Pain (mid-lower back pain). absent: Other (no lateral aspect to left leg) Skin: Normal Neurological: Other (pins and needles sensation on occasion associated with back pain.) Endocrine: Normal Hemo/Lymphatic: Normal Psychiatric: Normal Physical Exam Vital Signs Reviewed: Yes Vital Signs Temp Pulse Resp BP Pulse Ox 09/14/17 12:57 97.8 F 86 16 116/79 100 Temperature: Afebrile Blood Pressure: Normal Pulse: Regular Respiratory Rate: Normal Appearance: Positive for: Well-Appearing Pain Distress: None Mental Status: Positive for: Alert and Oriented X 3 - Systems Exam Respiratory/Chest: Present: Clear to Auscultation, Good Air Exchange. No: Respiratory Distress, Accessory Muscle Use Cardiovascular: Present: Regular Rate and Rhythm, Normal S1, S2. No: Murmurs Abdomen: Present: Normal Bowel Sounds. No: Tenderness, Distention, Peritoneal Signs Back: Present: Paraspinal Tenderness (lumbar region). No: Midline Tenderness Medical Decision Making ED Course and Treatment: 09/14/17 13:15 Impression: 26 year old female with mid-lower back pain. Plan: -- Toradol -- Reassess and disposition Prior Visits: Notes and results from previous visits were reviewed. Patient was last seen in the emergency department on Progress Notes: - Medication Orders Current Medication Orders: Discontinued Medications Ketorolac Tromethamine (Toradol) 60 mg IM STAT STA Stop: 09/14/17 13:16 Last Admin: 09/14/17 13:29 Dose: 60 mg MAR Pain Assessment Document 09/14/17 13:29 EQ (Rec: 09/14/17 13:[address] [id number] Pain Reassessment Is this a pain reassessment? No Sleep Is patient sleeping during reassessment? No Presence of Pain Presence of Pain Yes Pain Scale Used Pain Scale Used Numeric IM Administration Charges Document 09/14/17 13:29 EQ (Rec: 09/14/17 13:[address] [id number][place] Charges for Administration # of IM Administrations 1 - Scribe Statement The provider has reviewed the documentation as recorded by the Marielena Obando Provider Scribe Attestation: All medical record entries made by the Scribtez were at my direction and personally dictated by me. I have reviewed the chart and agree that the record accurately reflects my personal performance of the history, physical exam, medical decision making, and the department course for this patient. I have also personally directed, reviewed, and agree with the discharge instructions and disposition. Disposition/Present on Arrival - Present on Arrival Any Indicators Present on Arrival: No History of DVT/PE: No History of Uncontrolled Diabetes: No Urinary Catheter: No History of Decub. Ulcer: No History Surgical Site Infection Following: None - Disposition Have Diagnosis and Disposition been Completed?: Yes Diagnosis: Back pain Disposition: HOME/ ROUTINE Disposition Time: 15:30 Patient Plan: Discharge Condition: STABLE Prescriptions: Tramadol HCl [Ultram] 50 mg PO QID PRN #15 tablet PRN Reason: Pain, Mild (1-3) Referrals: Sly Dodd MD [Primary Care Provider] - Follow up with primary Forms: [employer] (Iraqi)
== END 2017-09-14 13:35 | disposition home or self-care (01) ==
LOC: ED 12:53
DX: M54.5 Low back pain (principal)
CPT/HCPCS: 96372; 99282; J1885

== ENCOUNTER 2017-11-05 08:16 | Emergency (ER) | payer MEDICARE, MEDICAID ==
[2017-11-05 08:16] VITALS: BMI 32.4
[2017-11-05 08:25] VITALS: TEMP 98.2
--- NOTE | 2017-11-05 08:37 | ED PDOC ---
Arrival/HPI - General Chief Complaint: Back Pain Time Seen by Provider: 11/05/17 08:33 Historian: Patient - History of Present Illness Narrative History of Present Illness (Text): 11/05/17 08:30 26 year old female, whose past medical history includes asthma, who presents to the emergency department complaining of intermittent sharp back pain. Patient reports the pain is intermittent, last 5 seconds. She also notes the pain is worse when lying down on it, touching it, deep breath, and has not been on control since two months ago. Patient denies any fever, dysuria, hematuria , abdominal pain, lower extremity swelling, hemoptysis, recent travel, previous DVT/PE or other complaints. Symptom Onset: Sudden Symptom Course: Intermittent Quality: Other (sharp) Past Medical History - Provider Review Nursing Documentation Reviewed: Yes - Infectious Disease Hx of Infectious Diseases: None - Cardiac Hx Cardiac Disorders: No - Pulmonary Hx Respiratory Disorders: Yes Hx Asthma: Yes - Neurological Hx Neurological Disorder: No - HEENT Hx HEENT Disorder: No - Renal Hx Renal Disorder: No - Endocrine/Metabolic Hx Endocrine Disorders: No - Hematological/Oncological Hx Blood Disorders: No - Integumentary Hx Dermatological Disorder: No - Musculoskeletal/Rheumatological Hx Musculoskeletal Disorders: No - Gastrointestinal Hx Gastrointestinal Disorders: No - Genitourinary/Gynecological Hx Genitourinary Disorders: No - Psychiatric Hx Psychophysiologic Disorder: Yes Hx Depression: Yes Hx Substance Use: No - Anesthesia Hx Anesthesia: Yes Hx Anesthesia Reactions: No Hx Malignant Hyperthermia: No Family/Social History - Physician Review Nursing Documentation Reviewed: Yes Family/Social History: Unknown Family HX Smoking Status: Light Smoker < 10 Cigarettes Daily Hx Alcohol Use: No Hx Substance Use: No Substance used: Heroine; quit 4 years ago Allergies/Home Meds Allergies/Adverse Reactions: Allergies No Known Allergies Allergy (Verified 11/05/17 08:24) Review of Systems - Physician Review All systems were reviewed & negative as marked: Yes - Review of Systems Constitutional: absent: Fevers Respiratory: absent: SOB Genitourinary Female: absent: Dysuria Musculoskeletal: Back Pain (sharp back pain) Physical Exam - Physical Exam Narrative Physical Exam (Text): Constitutional: No acute distress. Head: Normocephalic. Atraumatic. Eyes: PERRL. ENT: Moist mucous membranes. Neck: Supple. Cardiovascular: Regular rate. Chest: No tenderness. Respiratory: Clear to auscultation bilaterally. GI: Soft. Nontender. Nondistended. Back: (+) focal point bilateral thoracic tenderness. No midline tenderness. No CVA tenderness. Musculoskeletal: No tenderness or swelling of extremities. Skin: No rash. Neurologic: Alert, no focal deficit. Vital Signs Reviewed: Yes Vital Signs Temp Pulse Resp BP Pulse Ox 11/05/17 10:30 99 H 16 113/81 99 11/05/17 08:23 98.2 F 75 17 120/80 98 Temperature: Afebrile Blood Pressure: Normal Pulse: Regular Respiratory Rate: Normal Appearance: Positive for: Well-Appearing, Non-Toxic, Comfortable Pain Distress: None Mental Status: Positive for: Alert and Oriented X 3 Medical Decision Making ED Course and Treatment: 11/05/17 Impression: 26 year old female with focal point bilateral thoracic tenderness complaining of sharp back pain. Plan: -- Labs -- Urinalysis -- Reassess and disposition Progress Notes: PERC negative. CXR shows no fracture, PTX, pleural effusion, infiltrate, or consolidation. Will discharge, f/u PMD, continue NSAIDs, return to ED for worsening breathing, fever, or any other problem. - Lab Interpretations Lab Results: 11/05/17 08:35 11/05/17 08:35 Lab Results 11/05/17 08:35: Beta HCG, Quant < 2.39 11/05/17 08:35: Sodium 144, Potassium 4.7, Chloride 112 H, Carbon Dioxide 24, Anion Gap 13, BUN 14, Creatinine 0.7, Est GFR ( Amer) > 60, Est GFR (Non- Af Amer) > 60, Random Glucose 94, Calcium 9.2, Total Bilirubin 0.4, AST 22, ALT 27, Alkaline Phosphatase 36 L, Total Protein 6.7, Albumin 3.8, Globulin 2.8, Albumin/Globulin Ratio 1.4 11/05/17 08:35: D-Dimer, Quantitative < 200 11/05/17 08:35: WBC 5.2, RBC 4.51, Hgb 13.6, Hct 39.1, MCV 86.7, MCH 30.2, MCHC 34.8, RDW 12.8, Plt Count 203, MPV 10.2, Gran % 49.0 L, Lymph % (Auto) 38.7 H, [place] % (Auto) 4.0, Eos % (Auto) 7.9 H, Baso % (Auto) 0.4, Gran # 2.56, Lymph # ( Auto) 2.0, [place] # (Auto) 0.2, Eos # (Auto) 0.4, Baso # (Auto) 0.02 11/05/17 08:30: Urine Color Yellow, Urine Appearance Clear, Urine pH 6.0, Ur Specific [place] 1.025, Urine Protein Negative, Urine Glucose (UA) Negative, Urine Ketones Negative, Urine Blood Trace-intact H, Urine Nitrate Negative, Urine Bilirubin Negative, Urine Urobilinogen 0.2, Ur Leukocyte Esterase Negative , Urine RBC 2 - 5, Urine WBC 0 - 2, Ur Epithelial Cells 6 - 8, Urine Bacteria Mod, Urine HCG, Qual Negative I have reviewed the lab results: Yes - RAD Interpretation Radiology Orders: 11/05/17 09:35 CHEST TWO VIEWS (PA/LAT) [RAD] Stat - Medication Orders Current Medication Orders: Discontinued Medications Ketorolac Tromethamine (Toradol) 30 mg IVP STAT STA Stop: 11/05/17 09:36 Last Admin: 11/05/17 09:46 Dose: 30 mg MAR Pain Assessment Document 11/05/17 09:46 [facility] (Rec: 11/05/17 09:47 [facility] [id number]) Pain Reassessment Is this a pain reassessment? No Sleep Is patient sleeping during reassessment? Yes Pain Scale Used Pain Scale Used Numeric Location Pain Location Body Site Back Description Intensity of Pain at present 5 IVP Administration Document 11/05/17 09:46 [facility] (Rec: 11/05/17 09:47 [facility] [id number]) Charges for Administration # of IVP Administrations 1 - Scribe Statement The provider has reviewed the documentation as recorded by the Marielena Joseph Provider Scribe Attestation: All medical record entries made by the Scribe were at my direction and personally dictated by me. I have reviewed the chart and agree that the record accurately reflects my personal performance of the history, physical exam, medical decision making, and the department course for this patient. I have also personally directed, reviewed, and agree with the discharge instructions and disposition. Disposition/Present on Arrival - Present on Arrival Any Indicators Present on Arrival: No History of DVT/PE: No History of Uncontrolled Diabetes: No Urinary Catheter: No History of Decub. Ulcer: No History Surgical Site Infection Following: None - Disposition Have Diagnosis and Disposition been Completed?: Yes Diagnosis: Back pain Disposition: HOME/ ROUTINE Disposition Time: 11:21 Patient Plan: Discharge Condition: STABLE Discharge Instructions (ExitCare): Upper Back Pain Prescriptions: Ciprofloxacin [Cipro] 500 mg PO BID #14 tab [facility] - Follow up with primary Forms: [employer] (Slovenian)
[2017-11-05 08:43] LABS: URINE APPEARANCE CLEAR (CLEAR); URINE BILIRUBIN NEGATIVE (NEGATIVE); URINE BLOOD TRACE-INTACT (NEGATIVE); URINE COLOR YELLOW (YELLOW); URINE GLUCOSE (UA) NEGATIVE (NEGATIVE); URINE LEUKOCYTE ESTERASE NEGATIVE Leu/uL (NEGATIVE); URINE NITRATE NEGATIVE (NEGATIVE); URINE PROTEIN NEGATIVE mg/dL (<30 mg/dL); URINE UROBILINOGEN 0.2 E.U./dL (<1 E.U./dL)
[2017-11-05 08:44] LABS: HCG,QUALITATIVE URINE NEGATIVE (NEGATIVE)
[2017-11-05 08:49] LABS: URINE WBC 0 - 2 /hpf (0-6)
[2017-11-05 08:50] LABS: URINE BACTERIA MOD (NEG)
[2017-11-05 08:58] LABS: BASO # 0.02 K/mm3 (0.0-2.0); BASO % 0.4 % (0.0-3.0); EOS # 0.4 (0.0-0.7); EOS % 7.9 % (1.5-5.0); GRAN # 2.56 (1.4-6.5); HEMOGLOBIN 13.6 g/dL (12.0-16.0); LYMPH % 38.7 % (22.0-35.0); MEAN CELL VOLUME 86.7 fl (80.0-105.0); MEAN CORPUSCULAR HEMOGLOBIN 30.2 pg (25.0-35.0); MEAN CORPUSCULAR HGB CONC 34.8 g/dl (31.0-37.0); MEAN PLATELET VOLUME 10.2 fl (7.0-11.0); MONO # 0.2 (0.1-0.6); RBC 4.51 10^6/uL (3.5-6.1); RED CELL DISTRIBUTION WIDTH 12.8 % (11.5-14.5); WHITE BLOOD COUNT 5.2 10^3/ul (4.5-11.0)
[2017-11-05 09:13] LABS: ALB/GLOB RATIO 1.4 (1.1-1.8); ALBUMIN 3.8 g/dL (3.0-4.8); ALT/SGPT 27 U/L (7-56); AST/SGOT 22 U/L (14-36); BLOOD UREA NITROGEN 14 mg/dL (7-21); CALCIUM 9.2 mg/dL (8.4-10.5); GFR AFRICAN-AMERICAN > 60; GFR NON-AFRICAN AMERICAN > 60
[2017-11-05 11:02] VITALS: RESP 16
--- NOTE | 2017-11-05 11:18 | RAD ---
HISTORY: bilateral pleuritic back pain COMPARISON: 07/27/2017 TECHNIQUE: Chest PA and lateral FINDINGS: LUNGS: No active pulmonary disease. PLEURA: No significant pleural effusion identified. No pneumothorax apparent. CARDIOVASCULAR: Normal. OSSEOUS STRUCTURES: No significant abnormalities. VISUALIZED UPPER ABDOMEN: Normal. OTHER FINDINGS: None. IMPRESSION: No active disease.
[2017-11-05 11:34] VITALS: BP 123/76; PULSE 70; O2SAT 100
== END 2017-11-05 11:34 | disposition home or self-care (01) ==
LOC: ED 08:16
DX: M54.9 Dorsalgia, unspecified (principal); F17.210 Nicotine dependence, cigarettes, uncomplicated
CPT/HCPCS: 71046; 80053; 81001; 84702; 84703; 85025; 85378; 96374; 99283; J1885

== ENCOUNTER 2017-11-14 13:51 | Emergency (ER) | payer MEDICARE, MEDICAID ==
[2017-11-14 13:51] VITALS: BMI 32.4
[2017-11-14 14:22] VITALS: O2SAT 99
--- NOTE | 2017-11-14 14:35 | ED PDOC ---
Arrival/HPI - General Chief Complaint: Chest Pain Time Seen by Provider: 11/14/17 13:56 Historian: Patient - History of Present Illness Narrative History of Present Illness (Text): 11/14/17 14:34 This 26 yo female presents to this ED c/o b/l upper back pain which radiates to b/l lateral chest x 10 days. Denies abdominal pain, n/v, or urinary symptoms. PERC negative for PE Time/Duration: Other (see hpi) Context: Home Past Medical History - Provider Review Nursing Documentation Reviewed: Yes - Infectious Disease Hx of Infectious Diseases: None - Reproductive Menopause: No - Cardiac Hx Cardiac Disorders: No - Pulmonary Hx Respiratory Disorders: Yes Hx Asthma: Yes - Neurological Hx Neurological Disorder: No - HEENT Hx HEENT Disorder: No - Renal Hx Renal Disorder: No - Endocrine/Metabolic Hx Endocrine Disorders: No - Hematological/Oncological Hx Blood Disorders: No - Integumentary Hx Dermatological Disorder: No - Musculoskeletal/Rheumatological Hx Musculoskeletal Disorders: No - Gastrointestinal Hx Gastrointestinal Disorders: No - Genitourinary/Gynecological Hx Genitourinary Disorders: No - Psychiatric Hx Psychophysiologic Disorder: Yes Hx Depression: Yes Hx Substance Use: No - Anesthesia Hx Anesthesia: Yes Hx Anesthesia Reactions: No Hx Malignant Hyperthermia: No Family/Social History - Physician Review Nursing Documentation Reviewed: Yes Family/Social History: Other (noncontributory) Smoking Status: Light Smoker < 10 Cigarettes Daily Hx Alcohol Use: No Hx Substance Use: No Substance used: Heroine; quit 4 years ago Allergies/Home Meds Allergies/Adverse Reactions: Allergies No Known Allergies Allergy (Verified 11/14/17 14:11) Review of Systems - Review of Systems Constitutional: Normal. absent: Fatigue, Weight Change, Fevers Eyes: Normal ENT: Normal Respiratory: Normal. absent: SOB, Cough, Sputum, Wheezing Cardiovascular: Chest Pain. absent: Palpitations, Edema, Calf Pain, LAURENT, Orthopnea, Syncope Gastrointestinal: Normal. absent: Abdominal Pain, Nausea, Vomiting Genitourinary Female: Normal. absent: Dysuria, Frequency, Hematuria, Vaginal Bleeding, Vaginal Discharge Musculoskeletal: Back Pain (b/l upper back). absent: Arthralgias, Neck Pain Skin: Normal. absent: Rash Neurological: Normal. absent: Headache, Dizziness, Focal Weakness, Gait Changes , Speech Changes, Facial Droop, Disequilibrium Endocrine: Normal Hemo/Lymphatic: Normal Psychiatric: Normal Physical Exam Vital Signs Temp Pulse Resp BP Pulse Ox 11/14/17 14:08 99.3 F 93 H 17 126/73 99 Temperature: Afebrile Blood Pressure: Normal Pulse: Regular Respiratory Rate: Normal Appearance: Positive for: Well-Appearing, Non-Toxic, Comfortable Pain Distress: None Mental Status: Positive for: Alert and Oriented X 3 - Systems Exam Head: Present: Atraumatic, Normocephalic Pupils: Present: PERRL Extroacular Muscles: Present: EOMI Conjunctiva: Present: Normal Mouth: Present: Moist Mucous Membranes Pharnyx: Present: Normal. No: ERYTHEMA, EXUDATE, TONSILS ENLARGED Neck: Present: Normal Range of Motion. No: Meningeal Signs Respiratory/Chest: Present: Clear to Auscultation, Good Air Exchange, Tender to Palpation ((+) mild right and left lateral chest wall tenderness. No skin swelling, erythema, or ecchymosis.). No: Respiratory Distress, Accessory Muscle Use Cardiovascular: Present: Regular Rate and Rhythm, Normal S1, S2. No: Murmurs Abdomen: Present: Normal Bowel Sounds. No: Tenderness, Distention, Peritoneal Signs, Rebound, Guarding Back: Present: Normal Inspection. No: CVA Tenderness, Paraspinal Tenderness, Pain with Leg Raise Upper Extremity: Present: Normal Inspection, Normal ROM. No: Cyanosis, Edema Lower Extremity: Present: Normal Inspection, Normal ROM. No: Edema Neurological: Present: GCS=15, CN II-XII Intact, Speech Normal, Motor Func Grossly Intact, Normal Sensory Function, Normal Cerebellar Funct, Gait Normal Skin: Present: Warm, Dry, Normal Color. No: Rashes Psychiatric: Present: Alert, Oriented x 3, Normal Insight, Normal Concentration Medical Decision Making ED Course and Treatment: 11/14/17 16:07 Re-evaluation. Patient feels better. Discussed results and plan with patient who expresses understanding. All questions answered and there is agreement with the plan to discharge home with instructions. Patient stable for discharge. Return if symptoms persist or worsen. Patient stated pain has improved. Denies sob. CXR was negative, and labs are unremarkable. Patient was recommended to f/u pmd or clinic tomorrow. Patient understands recommendation, and she was instructed to return tif symptoms returns. Re-evaluation Time: 16:15 Reassessment Condition: Re-examined, Improved - Lab Interpretations Lab Results: 11/14/17 14:40 11/14/17 14:40 Lab Results 11/14/17 15:00: Urine Color Yellow, Urine Appearance Clear, Urine pH 6.0, Ur Specific [place] 1.025, Urine Protein Negative, Urine Glucose (UA) Negative, Urine Ketones Negative, Urine Blood Trace-intact H, Urine Nitrate Negative, Urine Bilirubin Negative, Urine Urobilinogen 0.2, Ur Leukocyte Esterase Negative , Urine RBC 0 - 2, Urine WBC Negative, Ur Epithelial Cells 1 - 3, Urine HCG, Qual Negative 11/14/17 14:40: Sodium 141, Potassium 4.1, Chloride 111 H, Carbon Dioxide 21, Anion Gap 14, BUN 16, Creatinine 0.7, Est GFR ( Amer) > 60, Est GFR (Non- Af Amer) > 60, Random Glucose 82, Calcium 9.2, Total Bilirubin 0.2, AST 17, ALT 23, Alkaline Phosphatase 39, Total Protein 6.9, Albumin 3.9, Globulin 3.0, Albumin/Globulin Ratio 1.3, Lipase 40 11/14/17 14:40: WBC 6.9 D, RBC 4.53, Hgb 13.4, Hct 39.2, MCV 86.5, MCH 29.6, MCHC 34.2, RDW 12.9, Plt Count 212, MPV 10.6, Gran % 51.4, Lymph % (Auto) 39.2 H , [place] % (Auto) 3.6, Eos % (Auto) 5.1 H, Baso % (Auto) 0.7, Gran # 3.54, Lymph # (Auto) 2.7, [place] # (Auto) 0.3, Eos # (Auto) 0.4, Baso # (Auto) 0.05 I have reviewed the lab results: Yes Interpretation: No clinic. lab abnormalty - RAD Interpretation Radiology Orders: 11/14/17 14:32 CHEST TWO VIEWS (PA/LAT) [RAD] Stat - EKG Interpretation Interpreted by ED Physician: Yes (NSR @ [address] changes) Type: 12 lead EKG Comparison: No previous EKG avail. - Medication Orders Current Medication Orders: Discontinued Medications Ketorolac Tromethamine (Toradol) 30 mg IVP STAT STA Stop: 11/14/17 14:34 Last Admin: 11/14/17 14:55 Dose: 30 mg MAR Pain Assessment Document 11/14/17 14:55 SZA (Rec: 11/14/17 15:15 [facility] [id number]) Pain Reassessment Is this a pain reassessment? No Sleep Is patient sleeping during reassessment? No Presence of Pain Presence of Pain Yes Pain Scale Used Pain Scale Used Numeric Description Description Intermittent IVP Administration Document 11/14/17 14:55 SZA (Rec: 11/14/17 15:15 [facility] [id number]) Charges for Administration # of IVP Administrations 1 Disposition/Present on Arrival - Present on Arrival Any Indicators Present on Arrival: No History of DVT/PE: No History of Uncontrolled Diabetes: No Urinary Catheter: No History of Decub. Ulcer: No History Surgical Site Infection Following: None - Disposition Have Diagnosis and Disposition been Completed?: Yes Diagnosis: Back pain, Chest wall pain Disposition: HOME/ ROUTINE Disposition Time: 16:16 Patient Plan: Discharge Condition: GOOD Discharge Instructions (ExitCare): Upper Back Pain Additional Instructions: Call private doctor for follow up visit in 1-2 days. Take medication as instructed. Return to emergency if symptoms worsen. Prescriptions: Famotidine [Pepcid] 40 mg PO DAILY #10 tablet Ibuprofen [Motrin] 400 mg PO Q8H PRN #20 tab PRN Reason: Pain, Severe (8-10) Referrals: Sly Dodd MD [Primary Care Provider] - Follow up with primary Forms: Surphace (Faroese)
[2017-11-14 15:26] LABS: URINE BILIRUBIN NEGATIVE (NEGATIVE); URINE BLOOD TRACE-INTACT (NEGATIVE); URINE GLUCOSE (UA) NEGATIVE (NEGATIVE); URINE LEUKOCYTE ESTERASE NEGATIVE Leu/uL (NEGATIVE); URINE PROTEIN NEGATIVE mg/dL (<30 mg/dL); URINE UROBILINOGEN 0.2 E.U./dL (<1 E.U./dL)
[2017-11-14 15:27] LABS: URINE APPEARANCE CLEAR (CLEAR); URINE COLOR YELLOW (YELLOW)
[2017-11-14 15:30] LABS: HCG,QUALITATIVE URINE NEGATIVE (NEGATIVE)
[2017-11-14 15:31] LABS: BASO # 0.05 K/mm3 (0.0-2.0); BASO % 0.7 % (0.0-3.0); EOS # 0.4 (0.0-0.7); EOS % 5.1 % (1.5-5.0); GRAN # 3.54 (1.4-6.5); GRAN % 51.4 % (50.0-68.0); HEMOGLOBIN 13.4 g/dL (12.0-16.0); LYMPH # 2.7 (1.2-3.4); LYMPH % 39.2 % (22.0-35.0); MEAN CELL VOLUME 86.5 fl (80.0-105.0); MEAN CORPUSCULAR HEMOGLOBIN 29.6 pg (25.0-35.0); MEAN CORPUSCULAR HGB CONC 34.2 g/dl (31.0-37.0); MEAN PLATELET VOLUME 10.6 fl (7.0-11.0); MONO # 0.3 (0.1-0.6); MONO % 3.6 % (1.0-6.0); RBC 4.53 10^6/uL (3.5-6.1); RED CELL DISTRIBUTION WIDTH 12.9 % (11.5-14.5); WHITE BLOOD COUNT 6.9 10^3/ul (4.5-11.0)
[2017-11-14 15:41] LABS: URINE RBC 0 - 2 /hpf (0-2); URINE WBC NEGATIVE /hpf (0-6)
[2017-11-14 15:43] LABS: ALB/GLOB RATIO 1.3 (1.1-1.8); ALBUMIN 3.9 g/dL (3.0-4.8); ALT/SGPT 23 U/L (7-56); AST/SGOT 17 U/L (14-36); BLOOD UREA NITROGEN 16 mg/dL (7-21); CALCIUM 9.2 mg/dL (8.4-10.5); GFR AFRICAN-AMERICAN > 60; GFR NON-AFRICAN AMERICAN > 60; LIPASE 40 U/L (23-300)
--- NOTE | 2017-11-14 16:06 | RAD ---
HISTORY: upper back pain COMPARISON: 11/05/2017 TECHNIQUE: Chest PA and lateral FINDINGS: LUNGS: No active pulmonary disease. PLEURA: No significant pleural effusion identified. No pneumothorax apparent. CARDIOVASCULAR: Normal. OSSEOUS STRUCTURES: No significant abnormalities. VISUALIZED UPPER ABDOMEN: Normal. OTHER FINDINGS: None. IMPRESSION: No active disease.
[2017-11-14 16:27] VITALS: BP 136/86; PULSE 72; RESP 16; TEMP 97
--- NOTE | 2017-11-15 10:42 | CARD ---
APPROVED REPORT EKG Measurement Heart [id number] <Conclusion> Normal sinus rhythm No change exceprt the rate is faster
== END 2017-11-14 16:27 | disposition home or self-care (01) ==
LOC: ED 13:51
DX: M54.6 Pain in thoracic spine (principal); R07.89 Other chest pain; F17.210 Nicotine dependence, cigarettes, uncomplicated
CPT/HCPCS: 71046; 80053; 81001; 83690; 84703; 85025; 93005; 96374; 99284; J1885

== ENCOUNTER 2018-01-03 21:45 | Emergency (ER) | payer MEDICARE, MEDICAID ==
--- NOTE | 2018-01-03 22:09 | ED PDOC ---
Arrival/HPI - General Time Seen by Provider: 01/03/18 22:07 Historian: Patient - History of Present Illness Narrative History of Present Illness (Text): 01/03/18 22:09 27 y/o female, pmh including gerd/asthma, nkda, c/o nausea and vomiting started today. Pt. stated that she has no abdominal pain, associated with couple episodes of nausea and vomiting when drinking orange juice, no night sweat, no urinary symptoms, no palpitation, no rash, no other medical or psychological complaints. Past Medical History - Provider Review Nursing Documentation Reviewed: Yes - Infectious Disease Hx of Infectious Diseases: None - Cardiac Hx Cardiac Disorders: No - Pulmonary Hx Respiratory Disorders: Yes Hx Asthma: Yes - Neurological Hx Neurological Disorder: No - HEENT Hx HEENT Disorder: No - Renal Hx Renal Disorder: No - Endocrine/Metabolic Hx Endocrine Disorders: No - Hematological/Oncological Hx Blood Disorders: No - Integumentary Hx Dermatological Disorder: No - Musculoskeletal/Rheumatological Hx Musculoskeletal Disorders: No - Gastrointestinal Hx Gastrointestinal Disorders: No - Genitourinary/Gynecological Hx Genitourinary Disorders: No - Psychiatric Hx Psychophysiologic Disorder: Yes Hx Depression: Yes Hx Substance Use: No - Anesthesia Hx Anesthesia: Yes Hx Anesthesia Reactions: No Hx Malignant Hyperthermia: No Family/Social History - Physician Review Nursing Documentation Reviewed: Yes Family/Social History: Unknown Family HX Smoking Status: Light Smoker < 10 Cigarettes Daily Hx Alcohol Use: No Hx Substance Use: No Substance used: Heroine; quit 4 years ago Allergies/Home Meds Allergies/Adverse Reactions: Allergies No Known Allergies Allergy (Verified 01/03/18 22:28) Review of Systems - Review of Systems Constitutional: absent: Fatigue, Fevers Eyes: absent: Vision Changes ENT: absent: Hearing Changes Respiratory: absent: SOB, Cough Cardiovascular: absent: Chest Pain Gastrointestinal: Nausea, Vomiting. absent: Abdominal Pain, Diarrhea Skin: absent: Rash, Pruritis Neurological: absent: Headache, Dizziness Psychiatric: absent: Anxiety, Depression Physical Exam Vital Signs Reviewed: Yes Vital Signs Temp Pulse Resp BP Pulse Ox 01/03/18 22:43 98.2 F 88 16 112/62 98 Temperature: Afebrile Blood Pressure: Normal Pulse: Regular Respiratory Rate: Normal Appearance: Positive for: Well-Appearing, Non-Toxic, Comfortable Pain Distress: None Mental Status: Positive for: Alert and Oriented X 3 - Systems Exam Head: Present: Atraumatic, Normocephalic Pupils: Present: PERRL Extroacular Muscles: Present: EOMI Conjunctiva: Present: Normal Mouth: Present: Moist Mucous Membranes Neck: Present: Normal Range of Motion Respiratory/Chest: Present: Clear to Auscultation, Good Air Exchange. No: Respiratory Distress, Accessory Muscle Use Cardiovascular: Present: Regular Rate and Rhythm, Normal S1, S2. No: Murmurs Abdomen: Present: Tenderness (mild epigastric tenderness, negative dodd signs , no cva tenderness). No: Distention, Peritoneal Signs, Rebound, Guarding Back: Present: Normal Inspection Upper Extremity: Present: Normal Inspection. No: Cyanosis, Edema Lower Extremity: Present: Normal Inspection. No: Edema Neurological: Present: GCS=15, CN II-XII Intact, Speech Normal Skin: Present: Warm, Dry, Normal Color. No: Rashes Psychiatric: Present: Alert, Oriented x 3, Normal Insight, Normal Concentration Medical Decision Making ED Course and Treatment: 01/03/18 22:42 -labs/lipase -IVF/pepcid -Observe and reassess 01/04/18 00:08 -Serum hcg is negative -Labs are non-significant -Pt. is aysmptomatic now, eating and drinking well, request to be discharged home. -Discharge home with pepcid, zofran, bed rest, avoid acidic/sour/spicy food, follow up with your own pmd and GI within 2 days, return to the ER for any new or worsening signs or symptoms. - Lab Interpretations Lab Results: 01/03/18 23:04 01/03/18 23:04 Lab Results 01/03/18 23:04: WBC 9.4 D, RBC 4.33, Hgb 12.7, Hct 36.7, MCV 84.8, MCH 29.3, MCHC 34.6, RDW 12.7, Plt Count 211, MPV 10.4, Gran % 51.3, Lymph % (Auto) 38.2 H , [place] % (Auto) 4.9, Eos % (Auto) 5.2 H, Baso % (Auto) 0.4, Gran # 4.82, Lymph # (Auto) 3.6 H, [place] # (Auto) 0.5, Eos # (Auto) 0.5, Baso # (Auto) 0.04 01/03/18 23:04: Beta HCG, Quant < 2.39 01/03/18 23:04: Sodium 144, Potassium 3.7, Chloride 109 H, Carbon Dioxide 23, Anion Gap 16, BUN 15, Creatinine 0.9, Est GFR ( Amer) > 60, Est GFR (Non- Af Amer) > 60, Random Glucose 95, Calcium 8.9, Magnesium 1.9, Total Bilirubin 0.2, AST 22, ALT 26, Alkaline Phosphatase 40, Total Protein 6.7, Albumin 4.1, Globulin 2.6, Albumin/Globulin Ratio 1.6, Lipase 64 - Medication Orders Current Medication Orders: Discontinued Medications Sodium Chloride (Sodium Chloride 0.9%) 1,000 mls @ 999 mls/hr IV .Q1H1M STA Stop: 01/03/18 23:39 Last Admin: 01/03/18 23:11 Dose: 999 mls/hr eMAR Start Stop Document 01/03/18 23:11 IT (Rec: 01/03/18 23:11 IT [id number]) Intravenous Solution Start Date 01/03/18 Start Time 23:11 End Date 01/03/18 Famotidine (Pepcid 20mg/50ml Premix) 20 mg in 50 mls @ 100 mls/hr IVPB ONCE ONE Stop: 01/03/18 23:14 Last Admin: 01/03/18 23:11 Dose: 100 mls/hr eMAR Start Stop Document 01/03/18 23:11 IT (Rec: 01/03/18 23:11 IT [id number]) Intravenous Solution Start Date 01/03/18 Start Time 23:11 End Date 01/03/18 - 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 Disposition/Present on Arrival - Present on Arrival Any Indicators Present on Arrival: No History of DVT/PE: No History of Uncontrolled Diabetes: No Urinary Catheter: No History of Decub. Ulcer: No History Surgical Site Infection Following: None - Disposition Have Diagnosis and Disposition been Completed?: Yes Diagnosis: Vomiting Disposition: HOME/ ROUTINE Disposition Time: 22:42 Patient Plan: Discharge Patient Problems: Current Active Problems Problem Status Onset Vomiting Acute Condition: IMPROVED Additional Instructions: -Discharge home with pepcid, zofran, bed rest, avoid acidic/sour/spicy food, follow up with your own pmd and GI within 2 days, return to the ER for any new or worsening signs or symptoms. Prescriptions: Famotidine [Pepcid] 20 mg PO BID #14 tab Ondansetron [Zofran] 4 mg PO Q8H PRN #10 tab PRN Reason: Nausea/Vomiting Referrals: Sly Dodd MD [Primary Care Provider] - Follow up with primary Pablo Wan DO [Staff Provider] - Follow up with primary Forms: WORK NOTE
[2018-01-03] MEDS ORDERED: Sodium Chloride 0.9% 1,000 ML IV STA (22:39)
[2018-01-03 22:43] VITALS: BMI 30.7
[2018-01-03] MEDS ORDERED: Famotidine 20mg/50ml 20 MG/50 ML BAG IVPB ONE (22:45)
[2018-01-03 23:12] VITALS: TEMP 98.2
[2018-01-03 23:34] LABS: BASO # 0.04 K/mm3 (0.0-2.0); BASO % 0.4 % (0.0-3.0); EOS # 0.5 (0.0-0.7); EOS % 5.2 % (1.5-5.0); GRAN # 4.82 (1.4-6.5); GRAN % 51.3 % (50.0-68.0); HEMOGLOBIN 12.7 g/dL (12.0-16.0); LYMPH # 3.6 (1.2-3.4); LYMPH % 38.2 % (22.0-35.0); MEAN CELL VOLUME 84.8 fl (80.0-105.0); MEAN CORPUSCULAR HEMOGLOBIN 29.3 pg (25.0-35.0); MEAN CORPUSCULAR HGB CONC 34.6 g/dl (31.0-37.0); MEAN PLATELET VOLUME 10.4 fl (7.0-11.0); MONO # 0.5 (0.1-0.6); MONO % 4.9 % (1.0-6.0); RBC 4.33 10^6/uL (3.5-6.1); RED CELL DISTRIBUTION WIDTH 12.7 % (11.5-14.5); WHITE BLOOD COUNT 9.4 10^3/ul (4.5-11.0)
[2018-01-03 23:37] LABS: ALB/GLOB RATIO 1.6 (1.1-1.8); ALBUMIN 4.1 g/dL (3.0-4.8); ALT/SGPT 26 U/L (7-56); AST/SGOT 22 U/L (14-36); BLOOD UREA NITROGEN 15 mg/dL (7-21); CALCIUM 8.9 mg/dL (8.4-10.5); GFR AFRICAN-AMERICAN > 60; GFR NON-AFRICAN AMERICAN > 60; LIPASE 64 U/L (23-300)
[2018-01-04 01:15] VITALS: BP 120/78; PULSE 82; RESP 17; O2SAT 100
== END 2018-01-04 00:45 | disposition home or self-care (01) ==
LOC: ED 21:45
DX: R11.10 Vomiting, unspecified (principal)
CPT/HCPCS: 80053; 83690; 83735; 84702; 85025; 99284; J7040

== ENCOUNTER 2018-03-20 16:02 | Observation (INO) | payer MEDICARE, MEDICAID ==
[2018-03-20 16:13] VITALS: BMI 33.0
[2018-03-20] MEDS ORDERED: Morphine 2 mg/ml ISec IVP STA ×2 (16:42→20:47)
[2018-03-20] MEDS ORDERED: Sodium Chloride 0.9% 1,000 ML IV STA ×2 (16:42→22:09)
[2018-03-20] MEDS ORDERED: Iohexol 240 (50 ml) ONE (16:53)
--- NOTE | 2018-03-20 16:57 | ED PDOC ---
Arrival/HPI - General Chief Complaint: Abdominal Pain Time Seen by Provider: 03/20/18 16:21 - History of Present Illness Narrative History of Present Illness (Text): 27 y/o F p/w abdominal pain x 2 days. Pain is lower abdomen, mostly RLQ, sharp, radiating up to umbilicus. States period began yesterday with bleeding and crmaping but this pain is different than her typical cramps. Pain is intermittent. Denies fever, chills, chest pain, dyspnea ,nausea, vomiting, diarrhea, constipation, dysuria, increased urinary frequency. Took Advil, Advil PM, ibuprofen, and motrin for pain from last night to today. Past Medical History - Infectious Disease Hx of Infectious Diseases: None - Cardiac Hx Cardiac Disorders: No - Pulmonary Hx Respiratory Disorders: Yes Hx Asthma: Yes - Neurological Hx Neurological Disorder: No - HEENT Hx HEENT Disorder: No - Renal Hx Renal Disorder: No - Endocrine/Metabolic Hx Endocrine Disorders: No - Hematological/Oncological Hx Blood Disorders: No - Integumentary Hx Dermatological Disorder: No - Musculoskeletal/Rheumatological Hx Musculoskeletal Disorders: No - Gastrointestinal Hx Gastrointestinal Disorders: No - Genitourinary/Gynecological Hx Genitourinary Disorders: No - Psychiatric Hx Psychophysiologic Disorder: Yes Hx Depression: Yes Hx Substance Use: No - Anesthesia Hx Anesthesia: Yes Hx Anesthesia Reactions: No Hx Malignant Hyperthermia: No Family/Social History Family/Social History: No Known Family HX Smoking Status: Light Smoker < 10 Cigarettes Daily Hx Alcohol Use: Yes Frequency of alcohol use: Socially Hx Substance Use: No Substance used: Heroine; quit 4 years ago Allergies/Home Meds Allergies/Adverse Reactions: Allergies No Known Allergies Allergy (Verified 01/03/18 22:28) Review of Systems - Physician Review All systems were reviewed & negative as marked: Yes - Review of Systems Constitutional: absent: Fevers Cardiovascular: absent: Chest Pain Physical Exam - Physical Exam Narrative Physical Exam (Text): Gen: NAD Head: NC/AT Eyes: No scleral icterus ENT: MMM Neck: Supple Chest: No tenderness CV: Regular rate Lungs: CTA b/l Abd: Soft, RLQ and suprapubic tenderness. No epigastric tenderness Back: No CVA tenderness Extremities: No edema Skin: No rash Neuro: Alert, no focal deficit Vital Signs Temp Pulse Resp BP Pulse Ox 03/21/18 00:10 68 16 126/79 98 07/19/18 20:53 68 17 126/79 98 03/20/18 17:42 88 17 125/75 100 03/20/18 17:00 64 18 125/74 99 03/20/18 16:16 98.4 F 90 18 123/71 98 03/20/18 16:13 98.4 F 87 18 98 Medical Decision Making ED Course and Treatment: Counseled on anti-inflammatory use. test negative. Differential at this time includes UTI, menstrual cramps, ovarian cyst, ovarian torsion, appendicitis. Pending CT, signed out to ED night team. - Lab Interpretations Microbiology Results: Microbiology Results 03/20/18 16:40 Urine,Clean Catch Urine Culture - Final <10,000 CFU/ML. MULTIPLE SPECIES. PROBABLE CONTAMINATION. Lab Results: 03/20/18 16:40 03/20/18 16:40 Lab Results 03/20/18 16:40: Sodium 144, Potassium 4.2, Chloride 110 H, Carbon Dioxide 23, Anion Gap 15, BUN 11, Creatinine 0.6 L, Est GFR ( Amer) > 60, Est GFR ( Non-Af Amer) > 60, Random Glucose 83, Calcium 8.7, Total Bilirubin 0.5, AST 23, ALT 32, Alkaline Phosphatase 46, Total Protein 6.6, Albumin 3.8, Globulin 2.8, Albumin/Globulin Ratio 1.3, Lipase 48 03/20/18 16:40: WBC 8.0, RBC 4.45, Hgb 13.1, Hct 37.2, MCV 83.6, MCH 29.4, MCHC 35.2, RDW 13.1, Plt Count 235, MPV 10.1, Gran % 56.0, Lymph % (Auto) 32.3, [place] % (Auto) 4.6, Eos % (Auto) 6.8 H, Baso % (Auto) 0.3, Gran # 4.48, Lymph # (Auto ) 2.6, [place] # (Auto) 0.4, Eos # (Auto) 0.5, Baso # (Auto) 0.02 03/20/18 16:40: Urine Color Light brown, Urine Appearance Sl cloudy, Urine pH 6.0, Ur Specific [place] >= 1.030, Urine Protein 30 H, Urine Glucose (UA) Negative, Urine Ketones Negative, Urine Blood Large H, Urine Nitrate Negative, Urine Bilirubin Negative, Urine Urobilinogen 0.2, Ur Leukocyte Esterase Trace H , Urine RBC 15 - 20, Urine WBC 1 - 3, Ur Epithelial Cells Many, Urine Bacteria Many, Urine HCG, Qual Negative - RAD Interpretation Radiology Orders: 03/20/18 16:42 TRANSVAGINAL [US] Stat 03/20/18 16:50 ABD PELVIS PO & IV CONTRAST [CT] Stat - Medication Orders Current Medication Orders: Discontinued Medications Sodium Chloride (Sodium Chloride 0.9%) 1,000 mls @ 999 mls/hr IV .Q1H1M STA Stop: 03/20/18 17:42 Last Admin: 03/20/18 16:45 Dose: 999 mls/hr eMAR Start Stop Document 03/20/18 16:45 SF (Rec: 03/20/18 17:41 [id number] Intravenous Solution Start Date 03/20/18 Start Time 16:45 End Date 03/20/18 End time 17:46 Total Infusion Time 61 Sodium Chloride (Sodium Chloride 0.9%) 1,000 mls @ 100 mls/hr IV .Q10H STA Stop: 03/21/18 08:08 Last Admin: 03/21/18 00:57 Dose: 100 mls/hr eMAR Start Stop Document 03/21/18 00:57 BR (Rec: 03/21/18 00:57 BR [id number]) Intravenous Solution Start Date 03/21/18 Start Time 00:57 Dextrose/Sodium Chloride (Dextrose 5%/0.45% Ns 1000 Ml) 1,000 mls @ 70 mls/hr IV [id number] [facility] Last Admin: 03/21/18 10:12 Dose: 70 mls/hr eMAR Start Stop Document 03/21/18 10:12 EP (Rec: 03/21/18 10:12 EP [id number]) Intravenous Solution Start Date 03/21/18 Start Time 10:12 Morphine Sulfate (Morphine) 2 mg IVP STAT STA Stop: 03/20/18 16:43 Last Admin: 03/20/18 17:41 Dose: 2 mg MAR Pain Assessment Document 03/20/18 17:41 SF (Rec: 03/20/18 17:41 [id number] Pain Reassessment Is this a pain reassessment? Yes Sleep Is patient sleeping during reassessment? No Presence of Pain Presence of Pain Yes Pain Scale Used Pain Scale Used Numeric Description Intensity of Pain at present 6 IVP Administration Document 03/20/18 17:41 SF (Rec: 03/20/18 17:41 [place] [id number]) Charges for Administration # of IVP Administrations 1 Morphine Sulfate (Morphine) 2 mg IVP STAT STA Stop: 03/20/18 20:48 Last Admin: 03/20/18 20:57 Dose: 2 mg [facility] Pain Assessment Document 03/20/18 20:57 SF (Rec: 03/20/18 20:58 [place] [id number]) Pain Reassessment Is this a pain reassessment? Yes Sleep Is patient sleeping during reassessment? No Presence of Pain Presence of Pain Yes IVP Administration Document 03/20/18 20:57 SF (Rec: 03/20/18 20:58 [place] [id number]) Charges for Administration # of IVP Administrations 1 Oxycodone/Acetaminophen (Percocet 5/325 Mg Tab) 1 tab PO Q6H PRN PRN Reason: Pain, severe (8-10) Stop: 03/24/18 08:51 Last Admin: 03/21/18 16:11 Dose: 1 tab [facility] Pain Assessment Document 03/21/18 16:11 EP (Rec: 03/21/18 16:11 EP [id number]) Pain Reassessment Is this a pain reassessment? No Sleep Is patient sleeping during reassessment? No Presence of Pain Presence of Pain Yes Pain Scale Used Pain Scale Used Numeric Location Pain Location Body Site Abdomen Description Description Intermittent Intensity of Pain at present 8 Re-Assess: MAR Pain Assessment Document 03/21/18 17:11 EP (Rec: 03/21/18 18:33 EP [id number]) Pain Reassessment Is this a pain reassessment? Yes Sleep Is patient sleeping during reassessment? No Presence of Pain Presence of Pain No Pantoprazole Sodium (Protonix Inj) 40 mg IVP DAILY [facility] Last Admin: 03/21/18 10:12 Dose: 40 mg IVP Administration Document 03/21/18 10:12 EP (Rec: 03/21/18 10:12 EP [id number]) Charges for Administration # of IVP Administrations 1 Pneumococcal Polyvalent Vaccine (Pneumovax 23 Vaccine) 0.5 ml IM .ONCE ONE Stop: 03/21/18 03:06 Disposition/Present on Arrival - Present on Arrival Any Indicators Present on Arrival: No History of DVT/PE: No History of Uncontrolled Diabetes: No Urinary Catheter: No History of Decub. Ulcer: No History Surgical Site Infection Following: None - Disposition Have Diagnosis and Disposition been Completed?: No Diagnosis: Intractable abdominal pain Disposition: HOSPITALIZED Disposition Time: 19:00 Condition: STABLE
[2018-03-20 17:30] LABS: BASO # 0.02 K/mm3 (0.0-2.0); BASO % 0.3 % (0.0-3.0); EOS # 0.5 (0.0-0.7); EOS % 6.8 % (1.5-5.0); GRAN # 4.48 (1.4-6.5); HEMOGLOBIN 13.1 g/dL (12.0-16.0); LYMPH # 2.6 (1.2-3.4); LYMPH % 32.3 % (22.0-35.0); MEAN CELL VOLUME 83.6 fl (80.0-105.0); MEAN CORPUSCULAR HEMOGLOBIN 29.4 pg (25.0-35.0); MEAN CORPUSCULAR HGB CONC 35.2 g/dl (31.0-37.0); MEAN PLATELET VOLUME 10.1 fl (7.0-11.0); MONO # 0.4 (0.1-0.6); MONO % 4.6 % (1.0-6.0); RBC 4.45 10^6/uL (3.5-6.1); RED CELL DISTRIBUTION WIDTH 13.1 % (11.5-14.5); URINE BILIRUBIN NEGATIVE (NEGATIVE); URINE BLOOD LARGE (NEGATIVE); URINE GLUCOSE (UA) NEGATIVE (NEGATIVE); URINE LEUKOCYTE ESTERASE TRACE Leu/uL (NEGATIVE); URINE PROTEIN 30 mg/dL (<30 mg/dL); URINE UROBILINOGEN 0.2 E.U./dL (<1 E.U./dL)
[2018-03-20 17:32] LABS: URINE APPEARANCE SL CLOUDY (CLEAR); URINE COLOR LIGHT BROWN (YELLOW)
[2018-03-20 17:35] LABS: HCG,QUALITATIVE URINE NEGATIVE (NEGATIVE); URINE BACTERIA MANY (NEG); URINE EPITHELIAL CELLS MANY /hpf (0-5); URINE RBC 15 - 20 /hpf (0-2)
[2018-03-20 17:36] LABS: ALB/GLOB RATIO 1.3 (1.1-1.8); ALBUMIN 3.8 g/dL (3.0-4.8); ALT/SGPT 32 U/L (7-56); AST/SGOT 23 U/L (14-36); BLOOD UREA NITROGEN 11 mg/dL (7-21); CALCIUM 8.7 mg/dL (8.4-10.5); GFR AFRICAN-AMERICAN > 60; GFR NON-AFRICAN AMERICAN > 60; LIPASE 48 U/L (23-300)
--- NOTE | 2018-03-20 18:55 | US ---
Date of service: 03/20/2018 HISTORY: R sided pain, r/o torsion vs cyst COMPARISON: None available. TECHNIQUE: Transvaginal pelvic ultrasound was performed. FINDINGS: UTERUS: Measures 8.6 x 3.7 x 5.4 cm. Anteverted, normal in size and appearance. No fibroid or other mass lesion seen. ENDOMETRIUM: Measures 11 mm in diameter. Normal in appearance. CERVIX: No cervical abnormality identified. RIGHT OVARY: Measures 2.6 x 2.4 x 2.8 cm. No solid mass. Normal flow. There is a 1.0 x 0.9 x 1.2 cm cyst/follicle. Cyst. LEFT OVARY: Measures 3.0 x 1.8 x 3.2 cm. No solid mass. Normal flow. There is a 2.3 x 0.9 x 0.9 cm cyst/follicle cyst. FREE FLUID: No significant free fluid noted. OTHER FINDINGS: None. IMPRESSION: Unremarkable pelvic ultrasound.
--- NOTE | 2018-03-20 19:26 | ED PDOC ---
Physical Exam Vital Signs Reviewed: Yes Vital Signs Temp Pulse Resp BP Pulse Ox 03/20/18 20:53 68 17 126/79 98 03/20/18 17:42 88 17 125/75 100 03/20/18 17:00 64 18 125/74 99 03/20/18 16:16 98.4 F 90 18 123/71 98 03/20/18 16:13 98.4 F 87 18 98 Temperature: Afebrile Blood Pressure: Normal Pulse: Regular Respiratory Rate: Normal Appearance: Positive for: Well-Appearing, Non-Toxic, Comfortable Pain Distress: None Mental Status: Positive for: Alert and Oriented X 3 - Systems Exam Head: Present: Atraumatic, Normocephalic Pupils: Present: PERRL Extroacular Muscles: Present: EOMI Conjunctiva: Present: Normal Respiratory/Chest: Present: Clear to Auscultation, Good Air Exchange. No: Respiratory Distress, Accessory Muscle Use Cardiovascular: Present: Regular Rate and Rhythm, Normal S1, S2. No: Murmurs Abdomen: Present: Tenderness (right lower quadrant and suprapubic tenderness). No: Distention, Peritoneal Signs Back: Present: Normal Inspection Upper Extremity: Present: Normal Inspection. No: Cyanosis, Edema Lower Extremity: Present: Normal Inspection. No: Edema Neurological: Present: GCS=15, CN II-XII Intact, Speech Normal Skin: Present: Warm, Dry, Normal Color. No: Rashes Psychiatric: Present: Alert, Oriented x 3, Normal Insight, Normal Concentration Medical Decision Making ED Course and Treatment: 03/20/18 19:05 Case endorsed to me by Dr. Fonseca for pending CT of Abdomen/Pelvis result. Patient is a 27 year old female who presented earlier today with lower cramplike abdominal discomfort radiating to her umbilicus since 2 day.Symptoms began at onset of her period 2 days ago.Patient is currently resting in bed in no acute distress. Patient denies any new medical complaints. Reassessment and final disposition will be performed once pending CT result is obtained.Pts. ultrasound result is noted showing ovarian cysts. 03/20/18 21:46 CT Abdomen and Pelvis shows: Lung bases: There are a couple of small nodules in the lingula the largest of which measures 4 mm. ABDOMEN: Liver: Unremarkable. No mass. Gallbladder and bile ducts: Unremarkable. No calcified stones. No ductal dilation. Pancreas: Unremarkable. No mass. No ductal dilation. Spleen: Unremarkable. No splenomegaly. Adrenals: Unremarkable. No mass. Kidneys and ureters: Unremarkable. No solid mass. No hydronephrosis. Stomach and bowel: Unremarkable. No obstruction. No mucosal thickening. PELVIS: Appendix: Normal appendix. Bladder: Unremarkable. No mass. Reproductive: Unremarkable as visualized. ABDOMEN and PELVIS: Intraperitoneal space: Unremarkable. No free air. No significant fluid collection. Bones/joints: No acute fracture. No dislocation. Soft tissues: Unremarkable. Vasculature: Unremarkable. No abdominal aortic aneurysm. Lymph nodes: Small mesenteric and right lower quadrant lymph nodes are noted and may represent mesenteric adenitis. IMPRESSION: 1. Normal appendix. 2. There are a couple of small nodules in the lingula the largest of which measures 4 mm. 3. Small mesenteric and right lower quadrant lymph nodes are noted and may represent mesenteric adenitis. RECOMMENDATIONS: There are a couple of small nodules in the lingula the largest of which measures 4 mm. In low-risk patients (minimal or absent history of smoking or other known risk factors), no follow-up is necessary. For high-risk patients (history of smoking or other known risk factors), an optional chest CT at 12 months could be performed. 03/20/18 21:53 On re-evaluation, pt with continued abdominal pain. Will place pt under hospital observation for further monitoring. Dr. Olson's service paged. 03/20/18 21:[address] Olson, who is aware and agrees with plan. Accepts pt in to his service. Pt will go to [facility] observation for intractable abdominal pain. Requests Dr. Renee and Dr. Tucker on consult. - Lab Interpretations Lab Results: 03/20/18 16:40 03/20/18 16:40 Lab Results 03/20/18 16:40: Sodium 144, Potassium 4.2, Chloride 110 H, Carbon Dioxide 23, Anion Gap 15, BUN 11, Creatinine 0.6 L, Est GFR ( Amer) > 60, Est GFR ( Non-Af Amer) > 60, Random Glucose 83, Calcium 8.7, Total Bilirubin 0.5, AST 23, ALT 32, Alkaline Phosphatase 46, Total Protein 6.6, Albumin 3.8, Globulin 2.8, Albumin/Globulin Ratio 1.3, Lipase 48 03/20/18 16:40: WBC 8.0, RBC 4.45, Hgb 13.1, Hct 37.2, MCV 83.6, MCH 29.4, MCHC 35.2, RDW 13.1, Plt Count 235, MPV 10.1, Gran % 56.0, Lymph % (Auto) 32.3, [place] % (Auto) 4.6, Eos % (Auto) 6.8 H, Baso % (Auto) 0.3, Gran # 4.48, Lymph # (Auto ) 2.6, [place] # (Auto) 0.4, Eos # (Auto) 0.5, Baso # (Auto) 0.02 03/20/18 16:40: Urine Color Light brown, Urine Appearance Sl cloudy, Urine pH 6.0, Ur Specific [place] >= 1.030, Urine Protein 30 H, Urine Glucose (UA) Negative, Urine Ketones Negative, Urine Blood Large H, Urine Nitrate Negative, Urine Bilirubin Negative, Urine Urobilinogen 0.2, Ur Leukocyte Esterase Trace H , Urine RBC 15 - 20, Urine WBC 1 - 3, Ur Epithelial Cells Many, Urine Bacteria Many, Urine HCG, Qual Negative - RAD Interpretation Radiology Orders: 03/20/18 16:42 TRANSVAGINAL [US] Stat 03/20/18 16:50 ABD PELVIS PO & IV CONTRAST [CT] Stat Manager Income Tax: Radiologist - Medication Orders Current Medication Orders: Discontinued Medications Sodium Chloride (Sodium Chloride 0.9%) 1,000 mls @ 999 mls/hr IV .Q1H1M STA Stop: 03/20/18 17:42 Last Admin: 03/20/18 16:45 Dose: 999 mls/hr eMAR Start Stop Document 03/20/18 16:45 SF (Rec: 03/20/18 17:41 [email or web address] Intravenous Solution Start Date 03/20/18 Start Time 16:45 End Date 03/20/18 End time 17:46 Total Infusion Time 61 Morphine Sulfate (Morphine) 2 mg IVP STAT STA Stop: 03/20/18 16:43 Last Admin: 03/20/18 17:41 Dose: 2 mg MAR Pain Assessment Document 03/20/18 17:41 SF (Rec: 03/20/18 17:41 SF [email or web address] Pain Reassessment Is this a pain reassessment? Yes Sleep Is patient sleeping during reassessment? No Presence of Pain Presence of Pain Yes Pain Scale Used Pain Scale Used Numeric Description Intensity of Pain at present 6 IVP Administration Document 03/20/18 17:41 SF (Rec: 03/20/18 17:41 SF [place] [id number]) Charges for Administration # of IVP Administrations 1 Morphine Sulfate (Morphine) 2 mg IVP STAT STA Stop: 03/20/18 20:48 Last Admin: 03/20/18 20:57 Dose: 2 mg MAR Pain Assessment Document 03/20/18 20:57 SF (Rec: 03/20/18 20:58 [email or web address] Pain Reassessment Is this a pain reassessment? Yes Sleep Is patient sleeping during reassessment? No Presence of Pain Presence of Pain Yes IVP Administration Document 03/20/18 20:57 SF (Rec: 03/20/18 20:58 SF [place] [id number]) Charges for Administration # of IVP Administrations 1 - Scribe Statement The provider has reviewed the documentation as recorded by the Scribe Piero Tellez. All medical record entries made by the Scribe were at my direction and personally dictated by me. I have reviewed the chart and agree that the record accurately reflects my personal performance of the history, physical exam, medical decision making, and the department course for this patient. I have also personally directed, reviewed, and agree with the discharge instructions and disposition. Disposition/Present on Arrival - Present on Arrival Any Indicators Present on Arrival: No History of DVT/PE: No History of Uncontrolled Diabetes: No Urinary Catheter: No History of Decub. Ulcer: No History Surgical Site Infection Following: None - Disposition Have Diagnosis and Disposition been Completed?: Yes Diagnosis: Intractable abdominal pain Disposition: HOSPITALIZED Disposition Time: 22:09 Patient Plan: Observation Condition: STABLE Referrals: Sly Dodd MD [Primary Care Provider] - Follow up with primary Forms: itravel (Urdu)
[2018-03-20 20:54] VITALS: O2SAT 98
[2018-03-21] MEDS ORDERED: Pneumococcal 23-Valent Vaccine IM ONE (03:05)
--- NOTE | 2018-03-21 07:53 | CP.PCM.CON ---
History of Present Illness - History of Present Illness History of Present Illness: Surgery Consult: Dr. Renee Pt is a 27F with PMHx of anxiety & depression who presented to [facility] [place] with RLQ/ pelvic pain. Pt states the pain started yesterday while she was laying around at home. She describes the pain as sharp radiating to her midline. She denies having a similar episode in the past. States she started her period 2 days ago, and it hasn't been like her previous periods. She describes the flow as a lot heavier & she states her cramps are also worse. She admits to nausea but denies vomiting. States her BMs have been watery but denies blood in BMs. Denies fevers /chills. Denies chest pain or SOB. In the ER, pt had a transvaginal US which was unremarkable. CT abdomen/pelvis also did not show any specific findings. PMHx: depression, anxiety PSHx: jaw fixation SocialHx: 10+ year smoking hx, social EtOH, denies drugs NKDA Review of Systems - Review of Systems All systems: reviewed and no additional remarkable complaints except (as per HPI ) Past Patient History - Infectious Disease Hx of Infectious Diseases: None - Past Social History Smoking Status: Light Smoker < 10 Cigarettes Daily - CARDIAC Hx Cardiac Disorders: No - PULMONARY Hx Respiratory Disorders: Yes Hx Asthma: Yes - NEUROLOGICAL Hx Neurological Disorder: No - HEENT Hx HEENT Problems: No - RENAL Hx Chronic Kidney Disease: No - ENDOCRINE/METABOLIC Hx Endocrine Disorders: No - HEMATOLOGICAL/ONCOLOGICAL Hx Blood Disorders: No - INTEGUMENTARY Hx Dermatological Problems: No - MUSCULOSKELETAL/RHEUMATOLOGICAL Hx Falls: No - GASTROINTESTINAL Hx Gastrointestinal Disorders: No - GENITOURINARY/GYNECOLOGICAL Hx Genitourinary Disorders: No - PSYCHIATRIC Hx Psychophysiologic Disorder: Yes Hx Anxiety: Yes Hx Depression: Yes - SURGICAL HISTORY Hx Surgeries: Yes (jaw surgery) - ANESTHESIA Hx Anesthesia: Yes Hx Anesthesia Reactions: No Hx Malignant Hyperthermia: No Meds Allergies/Adverse Reactions: Allergies Allergy/AdvReac Type Severity Reaction Status Date / Time No Known Allergies Allergy Verified 01/03/18 22:28 - Medications Medications: Current Medications Sodium Chloride (Sodium Chloride 0.9%) 1,000 mls @ 100 mls/hr IV .Q10H STA Stop: 03/21/18 08:08 Last Admin: 03/21/18 00:57 Dose: 100 mls/hr Physical Exam - Constitutional Appears: Well, No Acute Distress - Head Exam Head Exam: ATRAUMATIC, NORMOCEPHALIC - Eye Exam Eye Exam: Normal appearance - ENT Exam ENT Exam: Mucous Membranes Moist - Respiratory Exam Respiratory Exam: NORMAL BREATHING PATTERN - Cardiovascular Exam Cardiovascular Exam: RRR - GI/Abdominal Exam GI & Abdominal Exam: Soft, Tenderness (in the R pelvic region upon deep palpation). absent: Distended, Guarding, Rebound - Extremities Exam Extremities exam: Negative for: tenderness - Neurological Exam Neurological exam: Alert, Oriented x3 - Skin Skin Exam: Dry, Warm Results - Vital Signs Recent Vital Signs: Last Vital Signs Temp 98.7 F 03/21/18 02:58 Pulse 70 03/21/18 02:58 Resp 20 03/21/18 02:58 BP 143/89 03/21/18 02:58 Pulse Ox 98 03/21/18 00:55 - Labs Result Diagrams: 03/20/18 16:40 03/20/18 16:40 - Imaging and Cardiology CT scan - abdomen Status: Image reviewed by me Assessment & Plan - Assessment and Plan (Free Text) Assessment: 27F with abdominal pain Plan: - no plan for surgical intervention - pain likley reproductive in nature related to her current menstrual episode - ok to start diet - d/w Dr. Víctor Hall
[2018-03-21] MEDS ORDERED: Oxycodone/Acetaminophen 5/325 mg Tab PO PRN (08:50)
[2018-03-21] MEDS ORDERED: Dextrose 5%/0.45% NS 1,000 ML IV SCH (09:00)
--- NOTE | 2018-03-21 09:43 | CT ---
Date of service: 03/20/2018 PROCEDURE: CT Abdomen and Pelvis with contrast HISTORY: RLQ pain COMPARISON: None. TECHNIQUE: Contrast dose: 150 cc of Omni 350 Radiation dose: Total exam DLP = 1101 mGy-cm. This CT exam was performed using one or more of the following dose reduction techniques: Automated exposure control, adjustment of the mA and/or kV according to patient size, and/or use of iterative reconstruction technique. FINDINGS: LOWER THORAX: Unremarkable. LIVER: Unremarkable. No gross lesion or ductal dilatation. GALLBLADDER AND BILE DUCTS: Unremarkable. PANCREAS: Unremarkable. No gross lesion or ductal dilatation. SPLEEN: Unremarkable. ADRENALS: Unremarkable. No mass. KIDNEYS AND URETERS: Unremarkable. No hydronephrosis. No solid mass. VASCULATURE: Unremarkable. No aortic aneurysm. BOWEL: Unremarkable. No obstruction. No gross mural thickening. APPENDIX: Normal appendix. PERITONEUM: Unremarkable. No free fluid. No free air. LYMPH NODES: Unremarkable. No enlarged lymph nodes. BLADDER: Unremarkable. REPRODUCTIVE: Unremarkable. BONES: No acute fracture. OTHER FINDINGS: The report concurs with the preliminary [facility] report IMPRESSION: No acute intra-abdominal findings. No evidence of appendicitis
--- NOTE | 2018-03-21 13:03 | CP.PCM.CON ---
<Garrett Godwin - Last Filed: 03/21/18 13:46> History of Present Illness - History of Present Illness History of Present Illness: GI Consult Note for Dr. Tucker Service Garrett Godwin, PGY-3 IM This is a 27 yo F with PMH of anxiety, depression, and GERD who presented to [facility] [place] with RLQ/pelvic pain x2 days. Pain began with onset of current period, intermittent throughout the last 2 days, but patient reports felt different from prior cramps that she usually had with menstrual cycle. Pain improved yesterday during daytime, but then acutely worsened last night, prompting patient to present. Complains of nausea, and no PO food intake last night due to nausea, but tolerated all PO intake prior to evening, and tolerating PO liquids last night and today. At time of exam, patient had just eaten a sandwich brought to her by family, reports eating approximately 30 minutes prior to exam, and tolerating without issue. Reports normal daily bowel movements, normal urination, no change in symptoms with BM or urination (no improvement or worsening). Unable to identify any other improving or exacerbating factors. Hasn't taken anything for her symptoms. Denies emesis, chest pain, shortness of breath, diarrhea, constipation, tomy hematuria ( occasional tinging of blood, due to having her period now), melena/hematochezia , dysuria, room-spinning, lightheadedness, or syncope/near-syncope. RLQ pain still present but greatly improved on exam today as compared to at presentation. All other ROS in 12-system review negative. PMH: as above PSH: jaw fixation Soc Hx: admits tobacco (5-10 cigarettes per day, > 10 yrs), social EtOH (denies binging episode in last 2 weeks), denies drugs (but prior charting shows hx of Heroin use, reportedly last used > 4 yrs ago) Fam Hx: pt unaware of any cardiac, GI, or cancer hx in family PMD: Dr. Dodd Review of Systems - Review of Systems All systems: reviewed and no additional remarkable complaints except (as per HPI ) Past Patient History - Infectious Disease Hx of Infectious Diseases: None - Past Social History Smoking Status: Light Smoker < 10 Cigarettes Daily - CARDIAC Hx Cardiac Disorders: No - PULMONARY Hx Respiratory Disorders: Yes Hx Asthma: Yes - NEUROLOGICAL Hx Neurological Disorder: No - HEENT Hx HEENT Problems: No - RENAL Hx Chronic Kidney Disease: No - ENDOCRINE/METABOLIC Hx Endocrine Disorders: No - HEMATOLOGICAL/ONCOLOGICAL Hx Blood Disorders: No - INTEGUMENTARY Hx Dermatological Problems: No - MUSCULOSKELETAL/RHEUMATOLOGICAL Hx Falls: No - GASTROINTESTINAL Hx Gastrointestinal Disorders: No - GENITOURINARY/GYNECOLOGICAL Hx Genitourinary Disorders: No - PSYCHIATRIC Hx Psychophysiologic Disorder: Yes Hx Anxiety: Yes Hx Depression: Yes - SURGICAL HISTORY Hx Surgeries: Yes (jaw surgery) - ANESTHESIA Hx Anesthesia: Yes Hx Anesthesia Reactions: No Hx Malignant Hyperthermia: No Meds Allergies/Adverse Reactions: Allergies Allergy/AdvReac Type Severity Reaction Status Date / Time No Known Allergies Allergy Verified 01/03/18 22:28 - Medications Medications: Current Medications Dextrose/Sodium Chloride (Dextrose 5%/0.45% Ns 1000 Ml) 1,000 mls @ 70 mls/hr IV .[id number] [facility] Last Admin: 03/21/18 10:12 Dose: 70 mls/hr Oxycodone/Acetaminophen (Percocet 5/325 Mg Tab) 1 tab PO Q6H PRN PRN Reason: Pain, severe (8-10) Stop: 03/24/18 08:51 Pantoprazole Sodium (Protonix Inj) 40 mg IVP DAILY [facility] Last Admin: 03/21/18 10:12 Dose: 40 mg Physical Exam - Constitutional Appears: Well, Non-toxic, No Acute Distress - Head Exam Head Exam: ATRAUMATIC, NORMAL INSPECTION, NORMOCEPHALIC - Eye Exam Eye Exam: EOMI, Normal appearance. absent: Conjunctival injection, Scleral icterus Pupil Exam: absent: Fixed, Irregular - ENT Exam ENT Exam: Mucous Membranes Moist - Neck Exam Neck exam: Positive for: Normal Inspection. Negative for: Lymphadenopathy - Respiratory Exam Respiratory Exam: Clear to Auscultation Bilateral, NORMAL BREATHING PATTERN. absent: Accessory Muscle Use, Chest Wall Tenderness, Decreased Breath Sounds, Prolonged Expiratory Phase, Rales, Rhonchi, Wheezes, Respiratory Distress, Stridor - Cardiovascular Exam Cardiovascular Exam: REGULAR RHYTHM, RRR, +S1, +S2. absent: Bradycardia, Tachycardia, Irregular Rhythm, JVD, +S4 - GI/Abdominal Exam GI & Abdominal Exam: Normal Bowel Sounds, Soft, Tenderness (Mild RLQ tenderness on palpation, no R flank or R CVA tenderness appreciated, negative Dodd's sign ). absent: Diminished Bowel Sounds, Distended, Firm, Guarding, Hyperactive Bowel Sounds, Hypoactive Bowel Sounds, Rigid - Extremities Exam Extremities exam: Positive for: normal inspection, pedal pulses present. Negative for: calf tenderness, pedal edema, tenderness - Back Exam Back exam: absent: CVA tenderness (L), CVA tenderness (R) - Neurological Exam Additional comments: awake and alert, following all commands, moving all extremities spontaneously - Psychiatric Exam Psychiatric exam: Normal Affect, Normal Mood - Skin Skin Exam: Dry, Intact, Normal Color, Warm Results - Vital Signs Recent Vital Signs: Last Vital Signs Temp 98.3 F 03/21/18 06:00 Pulse 63 03/21/18 06:00 Resp 20 03/21/18 06:00 BP 100/63 03/21/18 06:00 Pulse Ox 98 03/21/18 06:00 - Labs Result Diagrams: 03/20/18 16:40 03/20/18 16:40 Assessment & Plan - Assessment and Plan (Free Text) Assessment: This is a 27 yo F with PMH of anxiety, depression, and GERD who presented to [facility] [place] with RLQ/pelvic pain x2 days. Pain began with onset of current period, intermittent throughout the last 2 days, but patient reports felt different from prior cramps that she usually had with menstrual cycle. GI consulted for RLQ abd pain with nausea. Plan: GERD Anxiety RUQ pain concurrent with menstrual period Ddx: appendicitis vs menstrual cramping vs STD/PID vs anxiety vs enteritis; unlikely ovarian torsion -Fluctuating pain with improvement, lack of severe pain, lack of emesis all suggest against ovarian torsion -Pt reports not currently sexually active, using protection when active, but family in room during questioning so unclear if fully truthful -FDLMP 2 days prior, reports normal period length and cycle, no recent breakthrough bleeding or missed periods -Nauseous, but still tolerating PO, no emesis or diarrhea -CT abd/pelvis negative for intra-abdominal process, negative for appendicitis -Transvaginal US notable for 1.0 x 0.9 x 1.2 cm R ovary cyst/follicle, 2.3 x 0.9 x 0.9 cm L ovary cyst/follicle, normal ovarian flow bilaterally, otherwise unremarkable -Already tolerating self-advanced diet, continue as tolerated -Also seen by surgery, no surgical intervention planned, diet advancement okay, most likely 2/2 menstrual cramps -No acute GI intervention indicated Patient reviewed and discussed with attending, Dr. Tucker <Alexandra Tucker V - Last Filed: 03/22/18 02:45> Results - Vital Signs Recent Vital Signs: Last Vital Signs Temp 98.6 F 03/21/18 14:00 Pulse 81 03/21/18 16:05 Resp 18 03/21/18 14:00 BP 120/70 03/21/18 16:05 Pulse Ox 98 03/21/18 14:00 - Labs Result Diagrams: 03/20/18 16:40 03/20/18 16:40 Attending/Attestation - Attestation I have personally seen and examined this patient.: Yes I have fully participated in the care of the patient.: Yes I have reviewed all pertinent clinical information: Yes Notes (Text): This is an addendum to GI consult report dictated by the Manager Of Engineering.The patient was seen and examined earlier. Medical records, lab studies, imagings were reviewed. Last 24 hours events reviewed. Agreed with the above treatment plan as outlined in Manager Of Engineering 's notes the with the addition of the following 02:45
[2018-03-21 14:53] VITALS: RESP 18; TEMP 98.6
[2018-03-21 16:06] VITALS: BP 120/70; PULSE 81
--- NOTE | 2018-03-22 10:44 | HP ---
MAIN COMPLAINT: Abdominal pain. HISTORY OF PRESENT ILLNESS: A 27-year-old female, history of ovarian mass. Complained of abdominal pain. The patient said that the pain is getting worse over the last couple of days. It is sharp, comes and goes, more on the right side. The patient was seen earlier before. She had a CT and showed ovarian cyst. The patient knows that she has a history of ovarian cyst. She does have nausea, but no vomiting. Pain has not been associated with any fever or any nausea or any diarrhea or constipations. No history of any GI problems or any dysuria, burning urination at all. PAST MEDICAL HISTORY: As I mentioned, asthma, ovarian cyst. SOCIAL HISTORY: She has 1 child. She does have alcohol use socially. She is a light smoker, less than 10 cigarettes a day. She does have history of IV drug use in the past, not anymore. She lives by herself. Not . No other problems. ALLERGIES: NO KNOWN ALLERGY. REVIEW OF SYSTEMS: Intermittent right lower pelvic pain, otherwise negative. Her menses is regular. FAMILY HISTORY: Noncontributory. PHYSICAL EXAMINATION: VITAL SIGNS: Temperature 98.7, heart rate 70, blood pressure is 143/89, respirations 20, saturations 98%. HEAD AND NECK: Normal. No JVD. No thyromegaly. CHEST: Clear bilaterally. CARDIAC: First sound and second sound normal. ABDOMEN: Soft, nontender. EXTREMITIES: No edema. NEUROLOGIC: Normal. LABORATORY STUDY: White count 8, hemoglobin 13.1, hematocrit 37.2 and platelets are 235. Chemistry shows sodium 144, potassium 4.2, chloride 110, bicarb 23, BUN 11, creatinine 0.6. Liver function test is normal. Albumin, globulin, lipase are normal. Urinalysis shows 15-20 red blood cells. The patient has menses, otherwise negative. The patient also had a CT of the abdomen and pelvis, shows ovarian cyst. No acute problems. She has transvaginal ultrasound. There is only a small cyst, 1 x 1.2 cm cystic follicle, many of that is on the right side where is the pain. Otherwise, negative. IMPRESSION AND PLAN: This is a 27-year-old female who came with right pelvic pain. The patient was admitted for observations, IV fluids, IV Protonix, Zofran. We will admit the patient to be seen by surgical consult, Dr. Gonzales Renee and gynecology consultation. The patient was with pain associated with her menses currently and otherwise stable. The patient is eating. No vomiting. No other complaints. She does feel a little bit nauseous, was given Zofran. The patient's CT negative for appendicitis. The patient was seen by GI. No acute GI problems as per Dr. Tucker. Dr. Renee also seen the patient. No surgical interventions. The patient was given a prescription for Gynecology to follow up as outpatient. The patient seems doing well. Eating and tolerating diet. We will discharge the patient with diagnoses of, 1. Abdominal pain. 2. Probably ovarian cyst. 3. Menstrual cramps. 4. Asthma. 5. Overweight. Discharge home on Protonix 40 mg once a day, Zofran 4 mg p.o. every 6 hours p.r.n. Sammy Olson MD
== END 2018-03-21 19:46 | disposition home or self-care (01) ==
LOC: ED 16:02 → ERH 22:08 → 5RNO 03-21 00:42
PROVIDERS: ADMIT Internal Medicine; ATTEND Internal Medicine
DX: R10.31 Right lower quadrant pain (principal); R10.2 Pelvic and perineal pain; N83.209 Unspecified ovarian cyst, unspecified side; E66.3 Overweight; N94.6 Dysmenorrhea, unspecified; F17.210 Nicotine dependence, cigarettes, uncomplicated; J45.909 Unspecified asthma, uncomplicated; K21.9 Gastro-esophageal reflux disease without esophagitis; F41.9 Anxiety disorder, unspecified; F32.9 Major depressive disorder, single episode, unspecified
CPT/HCPCS: 74177; 76830; 80053; 81001; 83690; 84703; 85025; 87086; 96361; 96374; 96375; 96376; 99285; C9113; G0378; J2270; J7030; J7042; Q9966; Q9967

== ENCOUNTER 2018-07-04 16:35 | Emergency (ER) | payer MEDICARE, MEDICAID ==
[2018-07-04 16:36] VITALS: BMI 33.0
[2018-07-04 17:12] VITALS: RESP 16; TEMP 98.4
--- NOTE | 2018-07-04 17:12 | ED PDOC ---
Arrival/HPI - General Historian: Patient - History of Present Illness Narrative History of Present Illness (Text): 07/04/18 17:06 27 yo F complains of nausea x 1 day without vomiting associated with mild midsternal discomfort which started yesterday. Patient states that the pain begins and then she develops reflux. She reports having this similar pain off and on x 1 year, states that she gets it at least 3x a month. She usually takes her father's reflux medication for relief (she does not know the name of the medication). Otherwise: (-) abdominal pain, (-) vomiting, (-) diarrhea, (-) fever, (-) back pain, (-) radiation, (-) SOB, (-) dyspnea, (-) recent travel, (- ) leg pain/swelling, (-) OCP use, (-) melena, (-) hematochezia, (-) urinary symptoms. PMD : [place] <Lizbet Carter PA-C - Last Filed: 07/04/18 19:13> <Joel Davis - Last Filed: 07/04/18 20:49> - General Chief Complaint: GI Problem Time Seen by Provider: 07/04/18 16:49 Past Medical History - Infectious Disease Hx of Infectious Diseases: None - Cardiac Hx Cardiac Disorders: No - Pulmonary Hx Respiratory Disorders: Yes Hx Asthma: Yes - Neurological Hx Neurological Disorder: No - HEENT Hx HEENT Disorder: No - Renal Hx Renal Disorder: No - Endocrine/Metabolic Hx Endocrine Disorders: No - Hematological/Oncological Hx Blood Disorders: No - Integumentary Hx Dermatological Disorder: No - Musculoskeletal/Rheumatological Hx Musculoskeletal Disorders: No - Gastrointestinal Hx Gastrointestinal Disorders: No - Genitourinary/Gynecological Hx Genitourinary Disorders: No - Psychiatric Hx Psychophysiologic Disorder: Yes Hx Depression: Yes Hx Substance Use: No - Surgical History Other/Comment: R jaw surgery - Anesthesia Hx Anesthesia: Yes Hx Anesthesia Reactions: No Hx Malignant Hyperthermia: No <Lizbet Carter PA-C - Last Filed: 07/04/18 19:13> Family/Social History Family/Social History: Unknown Family HX Smoking Status: Light Smoker < 10 Cigarettes Daily Hx Alcohol Use: Yes Hx Substance Use: No Substance used: Heroine; quit 4 years ago <Lizbet Carter PA-C. - Last Filed: 07/04/18 19:13> Allergies/Home Meds <Lizbet Carter PA-C - Last Filed: 07/04/18 19:13> <Joel Davis - Last Filed: 07/04/18 20:49> Allergies/Adverse Reactions: Allergies No Known Allergies Allergy (Verified 01/03/18 22:28) Review of Systems - Review of Systems Constitutional: absent: Fatigue, Fevers Respiratory: absent: SOB, Cough Cardiovascular: Chest Pain Gastrointestinal: Abdominal Pain, Nausea. absent: Diarrhea, Vomiting Genitourinary Female: absent: Dysuria, Frequency Musculoskeletal: absent: Arthralgias, Back Pain, Neck Pain Skin: absent: Rash, Pruritis, Skin Lesions Neurological: absent: Headache, Dizziness <Libzet Carter PA-C - Last Filed: 07/04/18 19:13> Physical Exam Temperature: Afebrile Blood Pressure: Normal Pulse: Regular Respiratory Rate: Normal Appearance: Positive for: Well-Appearing, Non-Toxic, Comfortable Pain Distress: None (patient is smiling, in good spirits, drinking water easily without any vomiting) Mental Status: Positive for: Alert and Oriented X 3 - Systems Exam Head: Present: Atraumatic, Normocephalic Pupils: Present: PERRL Extroacular Muscles: Present: EOMI Conjunctiva: Present: Normal Mouth: Present: Moist Mucous Membranes Neck: Present: Normal Range of Motion Respiratory/Chest: Present: Clear to Auscultation, Good Air Exchange. No: Respiratory Distress, Accessory Muscle Use Cardiovascular: Present: Regular Rate and Rhythm, Normal S1, S2. No: Murmurs Abdomen: Present: Other (negative romeo's sign). No: Tenderness, Distention, Peritoneal Signs, Rebound, Guarding Back: Present: Normal Inspection Upper Extremity: Present: Normal Inspection. No: Cyanosis, Edema Lower Extremity: Present: Normal Inspection. No: Edema Neurological: Present: GCS=15, CN II-XII Intact, Speech Normal, Motor Func Grossly Intact, Normal Sensory Function, Gait Normal Skin: Present: Warm, Dry, Normal Color. No: Rashes Psychiatric: Present: Alert, Oriented x 3, Normal Insight, Normal Concentration <Lizbet Carter PA-C - Last Filed: 07/04/18 19:13> Vital Signs Temp Pulse Resp BP Pulse Ox 07/04/18 18:40 98.4 F 82 16 129/79 99 07/04/18 18:35 98.4 F 82 16 129/79 99 07/04/18 17:04 98.4 F 79 16 118/70 98 <RyanJoel - Last Filed: 07/04/18 20:49> Medical Decision Making ED Course and Treatment: 07/04/18 17:04 Plan: -- Labs -- IV -- Urinalysis -- EKG -- Pepcid IV / Reglan PO -- Reassess and disposition EKG: NSR at 71 bpm, (-) acute ST changes, as read by [facility] (+) 07/04/18 17:49 Patient notified of +hcg, she reports her LMP was last month. She reports no abdominal pain or vaginal bleeding at this time. She is resting in bed comfortably in no acute distress, using her cell phone, smiling, is happy and in good spirits. She continues to tolerate po fluids. Abdomen remains soft and non- tender. Rest of the labs reviewed and wnl. Results d/w the patient. Based on history, exam and diagnostic results plan will be for outpatient follow up Advised to follow up with primary care physician or display associate referral provided in 1-2 days without fail. Advised to take medication as prescribed. Return to the emergency room at any time for any new or worsening symptoms. Patient states she fully agrees with and understands discharge instructions. States that she agrees with the plan and disposition. Verbalized and repeated discharge instructions and plan. I have given the patient opportunity to ask any additional questions. - RAD Interpretation Radiology Orders: 07/04/18 17:01 CHEST PORTABLE [RAD] Stat <Lizbet Carter PA-C - Last Filed: 07/04/18 19:13> - Lab Interpretations Lab Results: 07/04/18 17:30 07/04/18 17:30 Lab Results 07/04/18 17:35: Urine Color Light yellow, Urine Appearance Clear, Urine pH 6.5, Ur Specific [place] 1.020, Urine Protein Negative, Urine Glucose (UA) Negative, Urine Ketones Negative, Urine Blood Negative, Urine Nitrate Negative, Urine Bilirubin Negative, Urine Urobilinogen 0.2, Ur Leukocyte Esterase Negative 07/04/18 17:30: Sodium 136, Potassium 4.1, Chloride 103, Carbon Dioxide 24, A nion Gap 14, BUN 13, Creatinine 0.6 L, Est GFR ( Amer) > 60, Est GFR (Non-Af Amer) > 60, Random Glucose 79, Calcium 9.3, Magnesium 1.8, Total Bilirubin 0.2, AST 27, ALT 29, Alkaline Phosphatase 47, Total Protein 7.4, Albumin 4.4, Globulin 3.1, Albumin/Globulin Ratio 1.4, Lipase 47 07/04/18 17:30: WBC 10.0, RBC 4.60, Hgb 13.6, Hct 38.6, MCV 83.9, MCH 29.6, MCHC 35.2, RDW 12.9, Plt Count 256, MPV 10.0, Gran % 64.5, Lymph % (Auto) 28.7, Kaufman % (Auto) 3.3, Eos % (Auto) 3.3, Baso % (Auto) 0.2, Gran # 6.44, Lymph # (Auto) 2.9, Kaufman # (Auto) 0.3, Eos # (Auto) 0.3, Baso # (Auto) 0.02 - Medication Orders Current Medication Orders: Discontinued Medications Famotidine (Pepcid) 20 mg IVP STAT STA Stop: 07/04/18 17:02 Last Admin: 07/04/18 18:20 Dose: 20 mg IVP Administration Document 07/04/18 18:20 BB (Rec: 07/04/18 18:20 BB [id number]) Charges for Administration # of IVP Administrations 1 Metoclopramide HCl (Reglan) 10 mg PO STAT STA Stop: 07/04/18 17:48 Last Admin: 07/04/18 18:20 Dose: 10 mg <Joel Davis - Last Filed: 07/04/18 20:49> - PA / BAR MANAGER / Resident Statement NATALIE has reviewed & agrees with the documentation as recorded. <Lizbet Carter PA-C - Last Filed: 07/04/18 19:13> - PA / BAR MANAGER / Resident Statement NATALIE has reviewed & agrees with the documentation as recorded. <Joel Davis - Last Filed: 07/04/18 20:49> Disposition/Present on Arrival - Present on Arrival Any Indicators Present on Arrival: No History of DVT/PE: No History of Uncontrolled Diabetes: No Urinary Catheter: No History of Decub. Ulcer: No History Surgical Site Infection Following: None - Disposition Have Diagnosis and Disposition been Completed?: Yes Disposition Time: 18:15 Patient Plan: Discharge <Lizbet Carter PA-C - Last Filed: 07/04/18 19:13> <Joel Davis - Last Filed: 07/04/18 20:49> - Disposition Diagnosis: , Nausea, GERD (gastroesophageal reflux disease) Disposition: HOME/ ROUTINE Condition: STABLE Discharge Instructions (ExitCare): Acid Reflux (Gastroesophageal Reflux Disease), Adult (DC), Nausea and Vomiting, Adult, - The First Month Additional Instructions: Thank you for letting us take care of you today. You were treated for , nausea, GERD. The emergency medical care you received today was directed at your acute symptoms. If you were prescribed any medication, please fill it and take as directed. It may take several days for your symptoms to resolve. Return to the Emergency Department if your symptoms worsen, do not improve, or if you have any other problems. Please contact your doctor in 2 days for re-evaluation and follow up / or call one of the physicians/clinics you have been referred to that are listed on the Patient Visit Information form that is included in your discharge packet. Bring any paperwork you were given at discharge with you along with any medications you are taking to your follow up visit. Our treatment cannot replace ongoing medical care by a primary care provider (PCP) outside of the emergency department. Thank you for allowing the [facility] team to be part of your care today. Prescriptions: Calcium Carbonate [Tums] 1,000 mg PO TID PRN #30 ctb PRN Reason: Indigestion Metoclopramide HCl [Reglan] 10 mg PO TID #20 tablet Referrals: Brandan Tran DO [Staff Provider] - [facility] [Outside] - Follow up with primary Forms: [employer] (Icelandic), WORK NOTE
[2018-07-04 17:43] LABS: BASO # 0.02 K/mm3 (0.0-2.0); BASO % 0.2 % (0.0-3.0); EOS # 0.3 (0.0-0.7); EOS % 3.3 % (1.5-5.0); GRAN # 6.44 (1.4-6.5); GRAN % 64.5 % (50.0-68.0); HEMOGLOBIN 13.6 g/dL (12.0-16.0); LYMPH # 2.9 (1.2-3.4); LYMPH % 28.7 % (22.0-35.0); MEAN CELL VOLUME 83.9 fl (80.0-105.0); MEAN CORPUSCULAR HEMOGLOBIN 29.6 pg (25.0-35.0); MEAN CORPUSCULAR HGB CONC 35.2 g/dl (31.0-37.0); MONO # 0.3 (0.1-0.6); MONO % 3.3 % (1.0-6.0); RBC 4.6 10^6/uL (3.5-6.1); RED CELL DISTRIBUTION WIDTH 12.9 % (11.5-14.5)
[2018-07-04 17:48] LABS: ALB/GLOB RATIO 1.4 (1.1-1.8); ALBUMIN 4.4 g/dL (3.0-4.8); ALT/SGPT 29 U/L (7-56); AST/SGOT 27 U/L (14-36); BLOOD UREA NITROGEN 13 mg/dL (7-21); CALCIUM 9.3 mg/dL (8.4-10.5); GFR NON-AFRICAN AMERICAN > 60; LIPASE 47 U/L (23-300)
[2018-07-04 18:08] LABS: PH,URINE 6.5 (4.7-8.0); URINE BILIRUBIN NEGATIVE (NEGATIVE); URINE BLOOD NEGATIVE (NEGATIVE); URINE GLUCOSE (UA) NEGATIVE (NEGATIVE); URINE LEUKOCYTE ESTERASE NEGATIVE Leu/uL (NEGATIVE); URINE PROTEIN NEGATIVE mg/dL (<30 mg/dL); URINE UROBILINOGEN 0.2 E.U./dL (<1 E.U./dL)
[2018-07-04 18:10] LABS: URINE APPEARANCE CLEAR (CLEAR); URINE COLOR LIGHT YELLOW (YELLOW)
[2018-07-04 18:40] VITALS: BP 129/79; PULSE 82; O2SAT 99
--- NOTE | 2018-07-05 07:47 | CARD ---
APPROVED REPORT Date of service: 07/04/2018 EKG Measurement Heart [id number] <Conclusion> Normal sinus rhythm Normal ECG
== END 2018-07-04 18:38 | disposition home or self-care (01) ==
LOC: ED 16:35
DX: O26.899 Other specified pregnancy related conditions, unspecified trimester (principal); Z3A.00 Weeks of gestation of pregnancy not specified; K21.9 Gastro-esophageal reflux disease without esophagitis; F17.210 Nicotine dependence, cigarettes, uncomplicated

== ENCOUNTER 2018-07-09 09:21 | Emergency (ER) | payer MEDICARE, MEDICAID ==
[2018-07-09 09:21] VITALS: BMI 33.0
[2018-07-09] MEDS ORDERED: Sodium Chloride 0.9% 500 ML IV STA (09:49)
--- NOTE | 2018-07-09 09:49 | ED PDOC ---
Arrival/HPI - General Chief Complaint: Chest Pain Historian: Patient - History of Present Illness Narrative History of Present Illness (Text): 07/09/18 09:42 27 y/o female, pmh including gastritis/asthma, approx. 6 weeks with LMP 06/2018, nkda, c/o chest pain x 2 days. Pt. stated that she has been vomiting a lot since early , been nausea and vomiting with mostly morning sickness, epigastric to chest pain, no coughing or palpitation, no pleuritic pain, no night sweat, no RUQ pain, no rash, no other medical or psychological complaints. Pt. has no vaginal bleeding or discharge, no pelvic pain. Past Medical History - Provider Review Nursing Documentation Reviewed: Yes - Infectious Disease Hx of Infectious Diseases: None - Cardiac Hx Cardiac Disorders: No - Pulmonary Hx Respiratory Disorders: Yes Hx Asthma: Yes - Neurological Hx Neurological Disorder: No - HEENT Hx HEENT Disorder: No - Renal Hx Renal Disorder: No - Endocrine/Metabolic Hx Endocrine Disorders: No - Hematological/Oncological Hx Blood Disorders: No - Integumentary Hx Dermatological Disorder: No - Musculoskeletal/Rheumatological Hx Musculoskeletal Disorders: No - Gastrointestinal Hx Gastrointestinal Disorders: No - Genitourinary/Gynecological Hx Genitourinary Disorders: No - Psychiatric Hx Psychophysiologic Disorder: Yes Hx Depression: Yes Hx Substance Use: No - Surgical History Other/Comment: R jaw surgery - Anesthesia Hx Anesthesia: Yes Hx Anesthesia Reactions: No Hx Malignant Hyperthermia: No Family/Social History - Physician Review Nursing Documentation Reviewed: Yes Family/Social History: Unknown Family HX Smoking Status: Light Smoker < 10 Cigarettes Daily Hx Alcohol Use: Yes Hx Substance Use: No Substance used: Heroine; quit 4 years ago Allergies/Home Meds Allergies/Adverse Reactions: Allergies No Known Allergies Allergy (Verified 01/03/18 22:28) Home Medications: Home Meds Medication Instructions Recorded Confirmed Pnv No.95/Ferrous Fum/Folic AC 1 each PO DAILY 07/09/18 07/09/18 [ Vitamin Tablet] Review of Systems - Review of Systems Constitutional: absent: Fatigue, Fevers Eyes: absent: Vision Changes ENT: absent: Hearing Changes Respiratory: absent: SOB, Cough Cardiovascular: Chest Pain Gastrointestinal: Abdominal Pain, Nausea, Vomiting. absent: Diarrhea Skin: absent: Rash, Pruritis, Skin Lesions Neurological: absent: Headache, Dizziness Psychiatric: absent: Anxiety, Depression, Suicidal Ideation Physical Exam Vital Signs Reviewed: Yes Vital Signs Temp Pulse Pulse Resp BP Pulse Ox 07/09/18 09:40 69 07/09/18 09:37 98.3 F 72 19 118/66 99 Temperature: Afebrile Blood Pressure: Normal Pulse: Regular Respiratory Rate: Normal Appearance: Positive for: Well-Appearing, Non-Toxic, Comfortable Pain Distress: Mild Mental Status: Positive for: Alert and Oriented X 3 - Systems Exam Head: Present: Atraumatic, Normocephalic Pupils: Present: PERRL Extroacular Muscles: Present: EOMI Conjunctiva: Present: Normal Mouth: Present: Moist Mucous Membranes Neck: Present: Normal Range of Motion Respiratory/Chest: Present: Clear to Auscultation, Good Air Exchange. No: Respiratory Distress, Accessory Muscle Use Cardiovascular: Present: Regular Rate and Rhythm, Normal S1, S2. No: Murmurs Abdomen: Present: Tenderness (epigastric tenderness). No: Distention, Peritoneal Signs, Rebound, Guarding Back: Present: Normal Inspection. No: CVA Tenderness, Midline Tenderness Upper Extremity: Present: Normal Inspection. No: Cyanosis, Edema Lower Extremity: Present: Normal Inspection. No: Edema Neurological: Present: GCS=15, CN II-XII Intact, Speech Normal, Motor Func Grossly Intact, Gait Normal, Memory Normal Skin: Present: Warm, Dry, Normal Color. No: Rashes Psychiatric: Present: Alert, Oriented x 3, Normal Insight, Normal Concentration Medical Decision Making ED Course and Treatment: 07/09/18 09:53 -Labs/ua -IVF/pepcid/reglan -Observe and reassess 07/09/18 12:55 -EKG: NSR @ 60 BPM, no ST elevation or depression, no T wave inversion. -Labs show no acute significant findings -Trop after 24 hours is negative -Beta hcg [id number] -UA show +UTI but no vaginal itching. -PERC is negative, Well is negative, Heart score is low -Pt. feels much better, no more pain, request to be discharged home. -Discharge home with pepcid, keflex, diclegis, stay hydrated, follow up with your own pmd/GI and obgyn within 2 days, return to the ER for any new or worsening signs or symptoms. - EKG Interpretation EKG Interpretation (Text): 07/09/18 10:25 -EKG: NSR @ 60 BPM, no ST elevation or depression, no T wave inversion. Interpreted by ED Physician: Yes Type: 12 lead EKG - PA / GIS MAPPING TECHNICIAN / Resident Statement / has reviewed & agrees with the documentation as recorded. Disposition/Present on Arrival - Present on Arrival Any Indicators Present on Arrival: No History of DVT/PE: No History of Uncontrolled Diabetes: No Urinary Catheter: No History of Decub. Ulcer: No History Surgical Site Infection Following: None - Disposition Have Diagnosis and Disposition been Completed?: Yes Diagnosis: Gastritis, Morning sickness, UTI (urinary tract infection) Disposition: HOME/ ROUTINE Disposition Time: 12:56 Patient Plan: Discharge Patient Problems: Current Active Problems Problem Status Onset Gastritis Acute Morning sickness Acute UTI (urinary tract infection) Acute Condition: IMPROVED Additional Instructions: -Discharge home with pepcid, keflex, diclegis, stay hydrated, follow up with your own pmd/GI and obgyn within 2 days, return to the ER for any new or worsening signs or symptoms. Prescriptions: Cephalexin [cephalexin] 500 mg PO TID #21 cap Doxylamine/Pyridoxine HCl (B6) [Betty Chester 10-10 mg Tablet] 2 tab PO QPM PRN #20 tablet. PRN Reason: Other Famotidine [Pepcid] 20 mg PO BID PRN #20 tab PRN Reason: Other Referrals: Pablo Wan DO [Staff Provider] - Follow up with primary Hailee Oliver MD [Staff Provider] - Follow up with primary [facility]] - Follow up with primary Forms: [employer] (Georgian), WORK NOTE
[2018-07-09 11:12] LABS: PH,URINE 6.5 (4.7-8.0); URINE BILIRUBIN NEGATIVE (NEGATIVE); URINE BLOOD TRACE-LYSED (NEGATIVE); URINE GLUCOSE (UA) NEGATIVE (NEGATIVE); URINE LEUKOCYTE ESTERASE MODERATE Leu/uL (NEGATIVE); URINE PROTEIN NEGATIVE mg/dL (<30 mg/dL)
[2018-07-09 11:14] LABS: URINE APPEARANCE CLEAR (CLEAR); URINE COLOR YELLOW (YELLOW)
[2018-07-09 11:25] LABS: URINE BACTERIA MANY (NEG); URINE WBC 15 - 20 /hpf (0-6)
[2018-07-09 11:45] LABS: BASO # 0.02 K/mm3 (0.0-2.0); BASO % 0.2 % (0.0-3.0); EOS # 0.4 (0.0-0.7); EOS % 4.1 % (1.5-5.0); GRAN # 5.7 (1.4-6.5); GRAN % 64.2 % (50.0-68.0); HEMOGLOBIN 13.1 g/dL (12.0-16.0); LYMPH # 2.3 (1.2-3.4); LYMPH % 25.9 % (22.0-35.0); MEAN CELL VOLUME 84.8 fl (80.0-105.0); MEAN CORPUSCULAR HEMOGLOBIN 29.2 pg (25.0-35.0); MEAN CORPUSCULAR HGB CONC 34.5 g/dl (31.0-37.0); MEAN PLATELET VOLUME 10.4 fl (7.0-11.0); MONO # 0.5 (0.1-0.6); MONO % 5.6 % (1.0-6.0); RBC 4.48 10^6/uL (3.5-6.1); RED CELL DISTRIBUTION WIDTH 12.8 % (11.5-14.5); WHITE BLOOD COUNT 8.9 10^3/uL (4.5-11.0)
--- NOTE | 2018-07-09 12:37 | CARD ---
APPROVED REPORT Date of service: 07/09/2018 EKG Measurement Heart [id number] <Conclusion> Normal sinus rhythm Normal ECG
[2018-07-09 13:35] LABS: ALB/GLOB RATIO 1.2 (1.1-1.8); ALBUMIN 3.5 g/dL (3.0-4.8); ALT/SGPT 24 U/L (7-56); AST/SGOT 17 U/L (14-36); BLOOD UREA NITROGEN 9 mg/dL (7-21); CALCIUM 8.4 mg/dL (8.4-10.5); GFR NON-AFRICAN AMERICAN > 60
[2018-07-09 13:36] LABS: TROPONIN I < 0.01 ng/mL
[2018-07-09 13:57] VITALS: BP 117/85; PULSE 71; TEMP 98
[2018-07-09 13:59] VITALS: RESP 18; O2SAT 97
== END 2018-07-09 13:58 | disposition home or self-care (01) ==
LOC: ED 09:21
DX: O23.41 Unspecified infection of urinary tract in pregnancy, first trimester (principal); O21.0 Mild hyperemesis gravidarum; K29.70 Gastritis, unspecified, without bleeding; Z3A.01 Less than 8 weeks gestation of pregnancy
CPT/HCPCS: 80053; 81001; 84484; 84702; 85025; 87086; 93005; 96374; 96375; 99283; J2765; J7040

== ENCOUNTER 2018-07-11 16:54 | Emergency (ER) | payer MEDICARE, MEDICAID ==
[2018-07-11 17:10] VITALS: BMI 33.9
[2018-07-11] MEDS ORDERED: Sodium Chloride 0.9% 1,000 ML IV STA (17:45)
--- NOTE | 2018-07-11 17:59 | ED PDOC ---
Arrival/HPI - General Chief Complaint: Dizziness/Lightheaded Historian: Patient - History of Present Illness Narrative History of Present Illness (Text): 07/11/18 17:47 27yo female present with complaint of generalized weakness and dizziness. Describes the dizziness as lightheadedness. States she is currently 6weeks and has been having nausea and vomiting. States she was seen here twice this week for the N/V. states she is not eating, but drinking Gatorade. She have not seen her OB yet. Denies headache , fever, chills, focal weakness, chest pain, SOB, diaphoresis, calf pain, abdominal pain, urinary symptoms, vaginal bleeding/discharge, any other complaint. Past Medical History - Provider Review Nursing Documentation Reviewed: Yes - Infectious Disease Hx of Infectious Diseases: None - Cardiac Hx Cardiac Disorders: No - Pulmonary Hx Respiratory Disorders: Yes Hx Asthma: Yes - Neurological Hx Neurological Disorder: No - HEENT Hx HEENT Disorder: No - Renal Hx Renal Disorder: No - Endocrine/Metabolic Hx Endocrine Disorders: No - Hematological/Oncological Hx Blood Disorders: No - Integumentary Hx Dermatological Disorder: No - Musculoskeletal/Rheumatological Hx Musculoskeletal Disorders: No - Gastrointestinal Hx Gastrointestinal Disorders: No - Genitourinary/Gynecological Hx Genitourinary Disorders: No - Psychiatric Hx Psychophysiologic Disorder: Yes Hx Depression: Yes Hx Substance Use: No - Surgical History Other/Comment: R jaw surgery - Anesthesia Hx Anesthesia: Yes Hx Anesthesia Reactions: No Hx Malignant Hyperthermia: No Family/Social History - Physician Review Nursing Documentation Reviewed: Yes Family/Social History: Unknown Family HX Smoking Status: Light Smoker < 10 Cigarettes Daily Hx Alcohol Use: Yes Hx Substance Use: No Substance used: Heroine; quit 4 years ago Allergies/Home Meds Allergies/Adverse Reactions: Allergies No Known Allergies Allergy (Verified 07/11/18 18:52) Home Medications: Home Meds Medication Instructions Recorded Confirmed Pnv No.95/Ferrous Fum/Folic AC 1 each PO DAILY 07/09/18 07/09/18 [ Vitamin Tablet] Review of Systems - Physician Review All systems were reviewed & negative as marked: Yes - Review of Systems Constitutional: Fatigue Eyes: Normal ENT: Normal Respiratory: Normal Cardiovascular: Normal Gastrointestinal: Normal Genitourinary Female: Normal Musculoskeletal: Normal Skin: Normal Neurological: Normal, Dizziness Endocrine: Normal Hemo/Lymphatic: Normal Psychiatric: Normal Physical Exam Vital Signs Reviewed: Yes Vital Signs Temp Pulse Resp BP Pulse Ox 07/11/18 17:08 98.6 F 78 18 114/96 H 99 Temperature: Afebrile Blood Pressure: Normal Pulse: Regular Respiratory Rate: Normal Appearance: Positive for: Well-Appearing, Non-Toxic, Comfortable Pain Distress: None Mental Status: Positive for: Alert and Oriented X 3 - Systems Exam Head: Present: Atraumatic, Normocephalic Pupils: Present: PERRL Extroacular Muscles: Present: EOMI Conjunctiva: Present: Normal Mouth: Present: Moist Mucous Membranes Neck: Present: Normal Range of Motion Respiratory/Chest: Present: Clear to Auscultation, Good Air Exchange. No: Respiratory Distress, Accessory Muscle Use Cardiovascular: Present: Regular Rate and Rhythm, Normal S1, S2. No: Murmurs Abdomen: No: Tenderness, Distention, Peritoneal Signs Back: Present: Normal Inspection Upper Extremity: Present: Normal Inspection. No: Cyanosis, Edema Lower Extremity: Present: Normal Inspection. No: Edema Neurological: Present: GCS=15, CN II-XII Intact, Speech Normal Skin: Present: Warm, Dry, Normal Color. No: Rashes Psychiatric: Present: Alert, Oriented x 3, Normal Insight, Normal Concentration Medical Decision Making ED Course and Treatment: 07/11/18 19:20 27yo female in ED for generalized weakness and dizziness. Labs 1L NS Pt was comfortable in ED and neurologically intact. Her symptoms likely secondary to her . Lab was reviewed and unremarkable. she have UTI and review of her chart from 07/09/18 show that she also had UTI then and was given abx. Pt reports that she is currently taking the antibiotic. Result was DW the pt and she was strongly advised to f/u with a OB Advised TRT ED for any worsening or new symptoms - Medication Orders Current Medication Orders: Sodium Chloride (Sodium Chloride 0.9%) 1,000 mls @ 999 mls/hr IV .Q1H1M STA Stop: 07/11/18 18:45 Disposition/Present on Arrival - Present on Arrival Any Indicators Present on Arrival: No History of DVT/PE: No History of Uncontrolled Diabetes: No Urinary Catheter: No History of Decub. Ulcer: No History Surgical Site Infection Following: None - Disposition Have Diagnosis and Disposition been Completed?: Yes Diagnosis: Weakness, Dizziness, Disposition: HOME/ ROUTINE Disposition Time: 19:05 Patient Plan: Discharge Patient Problems: Current Active Problems Problem Status Onset Dizziness Acute Acute Weakness Acute Condition: STABLE Discharge Instructions (ExitCare): Generalized Weakness (DC), Weakness (ED) Additional Instructions: Follow up with OB Return to ED for any new or worsening symptoms Referrals: Kristal Caceres MD [Medical Doctor] - Follow up with primary Forms: [employer] (Belgian)
[2018-07-11 18:48] LABS: BASO # 0.02 K/mm3 (0.0-2.0); BASO % 0.2 % (0.0-3.0); EOS # 0.3 (0.0-0.7); EOS % 2.4 % (1.5-5.0); GRAN # 6.62 (1.4-6.5); GRAN % 64.8 % (50.0-68.0); HEMOGLOBIN 13.4 g/dL (12.0-16.0); LYMPH # 2.7 (1.2-3.4); MEAN CELL VOLUME 84.1 fl (80.0-105.0); MEAN CORPUSCULAR HEMOGLOBIN 29.6 pg (25.0-35.0); MEAN CORPUSCULAR HGB CONC 35.3 g/dl (31.0-37.0); MEAN PLATELET VOLUME 10.6 fl (7.0-11.0); MONO # 0.7 (0.1-0.6); MONO % 6.6 % (1.0-6.0); RBC 4.52 10^6/uL (3.5-6.1); RED CELL DISTRIBUTION WIDTH 12.6 % (11.5-14.5); WHITE BLOOD COUNT 10.2 10^3/uL (4.5-11.0)
[2018-07-11 18:49] LABS: URINE BILIRUBIN NEGATIVE (NEGATIVE); URINE BLOOD TRACE-LYSED (NEGATIVE); URINE GLUCOSE (UA) NEGATIVE (NEGATIVE); URINE LEUKOCYTE ESTERASE MODERATE Leu/uL (NEGATIVE); URINE PROTEIN NEGATIVE mg/dL (<30 mg/dL)
[2018-07-11 18:50] LABS: URINE APPEARANCE TURBID (CLEAR); URINE COLOR YELLOW (YELLOW)
[2018-07-11 18:55] LABS: URINE BACTERIA MANY (NEG); URINE EPITHELIAL CELLS MANY /hpf (0-5); URINE RBC NEGATIVE /hpf (0-2)
[2018-07-11 18:58] LABS: INR 1.07; PARTIAL THROMBOPLASTIN TIME 28.7 Seconds (25.1-36.5); PROTHROMBIN TIME 12.2 SECONDS (9.4-12.5)
[2018-07-11 18:59] LABS: ALB/GLOB RATIO 1.3 (1.1-1.8); ALBUMIN 4.2 g/dL (3.0-4.8); ALT/SGPT 29 U/L (7-56); AST/SGOT 29 U/L (14-36); BLOOD UREA NITROGEN 12 mg/dL (7-21); CALCIUM 8.9 mg/dL (8.4-10.5); GFR NON-AFRICAN AMERICAN > 60
[2018-07-11 19:44] VITALS: BP 115/68; PULSE 82; RESP 17; TEMP 98.2; O2SAT 100
== END 2018-07-11 19:23 | disposition home or self-care (01) ==
LOC: ED 16:54
DX: O26.91 Pregnancy related conditions, unspecified, first trimester (principal); R53.1 Weakness; R42 Dizziness and giddiness; Z3A.01 Less than 8 weeks gestation of pregnancy
CPT/HCPCS: 80053; 81001; 85025; 85610; 85730; 87086; 99285; J7030

== ENCOUNTER 2018-07-24 05:53 | Emergency (ER) | payer MEDICARE, MEDICAID ==
[2018-07-24 05:53] VITALS: BMI 33.9
[2018-07-24] MEDS ORDERED: Albuterol-Ipratrop 3 mg / 0.5 (3 ml) UD IH STA (06:21)
--- NOTE | 2018-07-24 06:22 | ED PDOC ---
Arrival/HPI - General Chief Complaint: Anxiety Time Seen by Provider: 07/24/18 06:21 Historian: Patient - History of Present Illness Narrative History of Present Illness (Text): 07/24/18 06:20 Louise Hankins is a 27 year old female, whose past medical history includes asthma, who presents to the Emergency department complaining of shortness of breath. Patient states she has began experiencing shortness of breath today, consistent with her previous episodes of asthma, after smoking marijuana. Patient states she took 1 nebulizer treatment at home with no significant relief. Patient also reports she feels anxious after smoking marijuana. Patient denies any fever, chills, chest pain, nausea, vomiting, diarrhea, urinary symptoms, back pain, neck pain, headache, dizziness, or any other complaints. Symptom Onset: Gradual Symptom Course: Unchanged Activities at Onset: Light Context: Home Past Medical History - Provider Review Nursing Documentation Reviewed: Yes - Infectious Disease Hx of Infectious Diseases: None - Cardiac Hx Cardiac Disorders: No - Pulmonary Hx Respiratory Disorders: Yes Hx Asthma: Yes - Neurological Hx Neurological Disorder: No - HEENT Hx HEENT Disorder: No - Renal Hx Renal Disorder: No - Endocrine/Metabolic Hx Endocrine Disorders: No - Hematological/Oncological Hx Blood Disorders: No - Integumentary Hx Dermatological Disorder: No - Musculoskeletal/Rheumatological Hx Musculoskeletal Disorders: No - Gastrointestinal Hx Gastrointestinal Disorders: No - Genitourinary/Gynecological Hx Genitourinary Disorders: No - Psychiatric Hx Psychophysiologic Disorder: Yes Hx Depression: Yes Hx Substance Use: No - Surgical History Other/Comment: R jaw surgery - Anesthesia Hx Anesthesia: Yes Hx Anesthesia Reactions: No Hx Malignant Hyperthermia: No Family/Social History - Physician Review Nursing Documentation Reviewed: Yes Family/Social History: Unknown Family HX Smoking Status: Light Smoker < 10 Cigarettes Daily Hx Alcohol Use: Yes Hx Substance Use: No Substance used: Heroine; quit 4 years ago Allergies/Home Meds Allergies/Adverse Reactions: Allergies No Known Allergies Allergy (Verified 07/24/18 06:00) Home Medications: Home Meds Medication Instructions Recorded Confirmed Pnv No.95/Ferrous Fum/Folic AC 1 each PO DAILY 07/09/18 07/09/18 [ Vitamin Tablet] Review of Systems - Physician Review All systems were reviewed & negative as marked: Yes - Review of Systems Constitutional: Normal. absent: Fevers Eyes: Normal ENT: Normal Respiratory: SOB. absent: Cough Cardiovascular: Normal. absent: Chest Pain Gastrointestinal: Normal. absent: Abdominal Pain, Diarrhea, Nausea, Vomiting Genitourinary Female: Normal. absent: Dysuria, Frequency, Hematuria, Urine Output Changes Musculoskeletal: Normal. absent: Back Pain, Neck Pain Skin: Normal. absent: Rash Neurological: Normal. absent: Headache, Dizziness Endocrine: Normal Hemo/Lymphatic: Normal Psychiatric: Anxiety Physical Exam Vital Signs Reviewed: Yes Temperature: Afebrile Blood Pressure: Normal Pulse: Regular Respiratory Rate: Normal Appearance: Positive for: Well-Appearing, Non-Toxic, Comfortable Pain Distress: None Mental Status: Positive for: Alert and Oriented X 3 - Systems Exam Head: Present: Atraumatic, Normocephalic Pupils: Present: PERRL Extroacular Muscles: Present: EOMI Conjunctiva: Present: Normal Mouth: Present: Moist Mucous Membranes Neck: Present: Normal Range of Motion Respiratory/Chest: Present: Wheezes (Mild wheezing). No: Respiratory Distress, Accessory Muscle Use Cardiovascular: Present: Regular Rate and Rhythm, Normal S1, S2. No: Murmurs Abdomen: No: Tenderness, Distention, Peritoneal Signs Back: Present: Normal Inspection Upper Extremity: Present: Normal Inspection. No: Cyanosis, Edema Lower Extremity: Present: Normal Inspection. No: Edema Neurological: Present: GCS=15, CN II-XII Intact, Speech Normal Skin: Present: Warm, Dry, Normal Color. No: Rashes Psychiatric: Present: Alert, Oriented x 3, Normal Insight, Normal Concentration Medical Decision Making ED Course and Treatment: 07/24/18 06:20 Impression: 27 year old female complaining of shortness of breath and anxiety after smoking marijuana today. Plan: -- Duoneb -- Ativan -- Reassess and disposition Prior Visits: Notes and results from previous visits were reviewed. Progress Notes: endorsed dr cevallos labs and dispo 07/25/18 12:21 - Scribe Statement The provider has reviewed the documentation as recorded by the Marielena Chino Provider Scribe Attestation: All medical record entries made by the Scribe were at my direction and personally dictated by me. I have reviewed the chart and agree that the record accurately reflects my personal performance of the history, physical exam, medical decision making, and the department course for this patient. I have also personally directed, reviewed, and agree with the discharge instructions and disposition. Disposition/Present on Arrival - Present on Arrival Any Indicators Present on Arrival: No History of DVT/PE: No History of Uncontrolled Diabetes: No Urinary Catheter: No History of Decub. Ulcer: No History Surgical Site Infection Following: None - Disposition Have Diagnosis and Disposition been Completed?: Yes Diagnosis: Dyspnea, Marijuana use Disposition: HOME/ ROUTINE Disposition Time: 07:00 Condition: IMPROVED Discharge Instructions (ExitCare): Shortness of Breath (Dyspnea) (DC) Print Language: MOH[place] [facility] [place] [facility] [place] - Follow up with primary Dilcia Rosado MD [Medical Doctor] - Follow up with primary Forms: [employer] ([place]an)
--- NOTE | 2018-07-24 07:03 | ED PDOC ---
Physical Exam Vital Signs Reviewed: Yes Vital Signs Temp Pulse Resp BP Pulse Ox 07/24/18 06:24 98.9 F 108 H 20 133/84 100 Temperature: Afebrile Blood Pressure: Normal Pulse: Tachycardic Appearance: Positive for: Well-Appearing, Non-Toxic, Comfortable Mental Status: Positive for: Alert and Oriented X 3 Medical Decision Making ED Course and Treatment: 07/24/18 07:[address] Cavanaugh with patient reevaluated stating she does not feel better, despite treatment with Duonebs and Ativan. Labs to be performed. 07/24/18 09:38 Urine positive. Upon reporting of findings to patient, she informs nurse of a recent D&C for an she had performed recently. She denies knowing her blood type, but denies vaginal bleeding at this time. Type and screen collected. 07/24/18 10:23 Blood screen reveals A negative blood in which she states she received RhoGAM in clinic when she had the D&C done. D-dimer pending. CXR shows no pulmonary infiltrates or consolidations. Patient reassessed and feels better. 07/24/18 11:16 D-dimer slightly elevated. Discussion with patient regarding need for CTPE to rule out PE with patient desiring to defer at this time. She acknowledges the risk vs benefit and will continue careful surveillance of her symptoms at this time. She is stable for discharge. - Lab Interpretations Lab Results: 07/24/18 07:02 07/24/18 08:10 Lab Results 07/24/18 10:35: D-Dimer, Quantitative 321 H 07/24/18 10:30: Blood Type Confirm A NEGATIVE 07/24/18 08:10: Blood Type A NEGATIVE, Antibody Screen Positive, Antibody Identification ANTI D DUE TO RhoGAM, BBK History Checked No verified bt 07/24/18 08:10: Sodium 139, Potassium 3.8, Chloride 107, Carbon Dioxide 25, Anion Gap 11, BUN 5 L, Creatinine 0.6 L, Est GFR ( Amer) > 60, Est GFR (Non-Af Amer) > 60, Random Glucose 92, Calcium 8.9, Total Bilirubin 0.3, AST 23, ALT 33, Alkaline Phosphatase 41, Troponin I < 0.01, Total Protein 6.6, Albumin 3.6, Globulin 3.0, Albumin/Globulin Ratio 1.2 07/24/18 07:02: WBC 9.2, RBC 3.72, Hgb 10.8 L D, Hct 30.9 L, MCV 83.1, MCH 29.0, MCHC 35.0, RDW 12.7, Plt Count 230, MPV 9.8, Gran % 69.8 H, Lymph % (Auto) 23.6, Lane % (Auto) 4.2, Eos % (Auto) 2.2, Baso % (Auto) 0.2, Gran # 6.45, Lymph # (Auto) 2.2, Lane # (Auto) 0.4, Eos # (Auto) 0.2, Baso # (Auto) 0.02 - Medication Orders Current Medication Orders: Discontinued Medications Albuterol/Ipratropium (Duoneb 3 Mg/0.5 Mg (3 Ml) Ud) 3 ml IH STAT STA Stop: 07/24/18 06:22 Last Admin: 07/24/18 06:29 Dose: 3 ml Lorazepam (Ativan) 0.5 mg PO ONCE ONE; Protocol Stop: 07/24/18 06:23 Last Admin: 07/24/18 06:29 Dose: 0.5 mg Disposition/Present on Arrival - Present on Arrival Any Indicators Present on Arrival: No History of DVT/PE: No History of Uncontrolled Diabetes: No Urinary Catheter: No History of Decub. Ulcer: No History Surgical Site Infection Following: None - Disposition Have Diagnosis and Disposition been Completed?: Yes Diagnosis: Dyspnea, Marijuana use Disposition: HOME/ ROUTINE Disposition Time: 10:51 Patient Plan: Discharge Condition: IMPROVED Discharge Instructions (ExitCare): Shortness of Breath (Dyspnea) (DC) Print Language: HEBREW [place] [facility] [place] [facility] [place] - Follow up with primary Dilcia Rosado MD [Medical Doctor] - Follow up with primary Forms: [employer] ([place]amibian)
[2018-07-24] MEDS ORDERED: Albuterol 0.083% Inhal Sol (2.5 mg/3 mL) UD INH STA (07:15)
[2018-07-24 08:17] VITALS: TEMP 98
[2018-07-24 08:23] LABS: BASO # 0.02 K/mm3 (0.0-2.0); BASO % 0.2 % (0.0-3.0); EOS # 0.2 (0.0-0.7); EOS % 2.2 % (1.5-5.0); GRAN # 6.45 (1.4-6.5); GRAN % 69.8 % (50.0-68.0); HEMOGLOBIN 10.8 g/dL (12.0-16.0); LYMPH # 2.2 (1.2-3.4); LYMPH % 23.6 % (22.0-35.0); MEAN CELL VOLUME 83.1 fl (80.0-105.0); MEAN PLATELET VOLUME 9.8 fl (7.0-11.0); MONO # 0.4 (0.1-0.6); MONO % 4.2 % (1.0-6.0); RBC 3.72 10^6/uL (3.5-6.1); RED CELL DISTRIBUTION WIDTH 12.7 % (11.5-14.5); WHITE BLOOD COUNT 9.2 10^3/uL (4.5-11.0)
[2018-07-24 08:46] LABS: ALB/GLOB RATIO 1.2 (1.1-1.8); ALBUMIN 3.6 g/dL (3.0-4.8); ALT/SGPT 33 U/L (7-56); AST/SGOT 23 U/L (14-36); BLOOD UREA NITROGEN 5 mg/dL (7-21); CALCIUM 8.9 mg/dL (8.4-10.5); GFR NON-AFRICAN AMERICAN > 60
[2018-07-24 08:48] LABS: TROPONIN I < 0.01 ng/mL
--- NOTE | 2018-07-24 10:02 | RAD ---
Date of service: 07/24/2018 HISTORY: sob COMPARISON: 11/14/2017 FINDINGS: LUNGS: No active pulmonary disease. PLEURA: No significant pleural effusion identified, no pneumothorax apparent. CARDIOVASCULAR: No aortic atherosclerotic calcification present. Normal cardiac size. No pulmonary vascular congestion. OSSEOUS STRUCTURES: No significant abnormalities. VISUALIZED UPPER ABDOMEN: Normal. OTHER FINDINGS: None. IMPRESSION: No active disease.
[2018-07-24 10:22] VITALS: RESP 19
[2018-07-24 11:23] VITALS: BP 124/53; PULSE 83; O2SAT 99
--- NOTE | 2018-07-25 08:24 | CARD ---
APPROVED REPORT Date of service: 07/24/2018 EKG Measurement Heart [id number] <Conclusion> Normal sinus rhythm Normal ECG No change except the rate is faster
== END 2018-07-24 11:21 | disposition home or self-care (01) ==
LOC: ED 05:53
DX: F12.90 Cannabis use, unspecified, uncomplicated (principal); R06.02 Shortness of breath; J45.909 Unspecified asthma, uncomplicated; F17.210 Nicotine dependence, cigarettes, uncomplicated

== ENCOUNTER 2018-11-07 14:17 | Emergency (ER) | payer MEDICARE, MEDICAID, OTHER | END 2018-11-07 18:49 | disposition home or self-care (01) | LOC: ED 14:17 ==